=== PATIENT | female | born 1930 | race Caucasian/White ===

== ENCOUNTER 2016-04-15 00:45 | Emergency (ER) | payer MEDICARE ==
[2016-04-15 01:25] LABS: BASOPHIL % 0.3 % (0.0-0.4); Eosinophil % 4.3 % (0.00-5.0); Granulocytes % 68.4 % (36.0-66.0); Lymphocytes % 18.9 % (24.0-44.0); Mean Cell Volume 89.2 fl (78-100); Mean Corpuscular Hemoglobin 27.4 pg (26-32); Mean Platelet Volume 10.4 fl (6-9.5); Monocytes % 8.1 % (0.0-12.0); Platelet Count 155 K/mm3 (150-450); Red Cell Distribution Width 14.2 % (11.5-14.0); White Blood Count 7.4 K/mm3 (4.0-10.5)
[2016-04-15] MEDS ORDERED: SUBLIMAZE 100 MCG/2 ML IV ONE (01:26)
[2016-04-15] MEDS ORDERED: SUBLIMAZE 100 MCG/2 ML ONE (01:31)
[2016-04-15 01:45] LABS: ALBUMIN 3.2 g/dL (3.4-5.0); ANION GAP 15.9 MEQ/L (5-15); BILIRUBIN,TOTAL 0.2 mg/dL (0.2-1.0); Carbon Dioxide 24.5 mEq/L (21-32); Potassium 4.1 mEq/L (3.5-5.1); Total Protein 6.6 gm/dL (6.4-8.2)
--- NOTE | 2016-04-15 01:46 | ERPHSYRPT ---
- History of Present Illness Time Seen by Provider: 04/15/16 01:03 Source: patient, family (daughter) Patient Subjective Stated Complaint: pt statess he has been having back pain since approx 1630. states she has been taking pain pills and muscle relaxer today but isnt having any relief. Triage Nursing Assessment: pt alert and oriented. answers questions approp. skin pink warm and dry. pt moaning and tearful at times. generalized weakness noted. pt transfer to stretcher from wheelchair with assist of 1. Physician History: CC: back pain Hx: 85 y/o patient of Dr Huffman/Florin King. She has hx of DM, chornic back issues and prior DJD and kyphoplasty, CAD s/p CABG remotely, as well as PVD stenting procedures. She has had back pain intermittently for the past month or better. It was worse so she had xray. The xray showed DJD and thoracic aneurysm. She came for abdominal CT which showed no AAA. The pain was bad that day so she checked into ER and had morphine. She has not had recent imaging of the thoracic aorta. The pain is worse tonite and severe. It does not radiate. Worse with cold chill. No N/T/W. No chest or abd pain. She has norco to use QID but only took 2 today as she slept most of the day. She is not on home oxygen. She is not short of air. Back Pain Location: T-spine Severity of Pain-Max: severe Severity of Pain-Current: severe Associated Symptoms: muscle spasms (back) Allergies/Adverse Reactions: Penicillins Allergy (Verified 04/15/16 01:02) heparin Adverse Reaction (Verified 04/15/16 01:02) Home Medications: Aspirin EC 325 mg [Ecotrin 325 MG] 1 tab PO DAILY 06/24/14 [History] Clopidogrel Bisulfate 75 mg [PLAVIX 75 MG Tablet] 75 mg PO DAILY 06/24/14 [History] Insulin Regular, Human [Humulin R] 0 units SQ TID 06/24/14 [History] Olmesartan Medoxomil 20 mg [Benicar 20 MG] 1 tab PO DAILY 06/24/14 [ History] Potassium Chloride 20 Meq [Klor-Con 20 MEQ] 1 tab PO DAILY 06/24/14 [History] Hydrocodone/APAP 10/325 mg [[place] 10/325 MG Tablet] 1 tab PO Q4-6HPRN PRN 06/25/14 [History] Hx Tetanus, Diphtheria Vaccination/Date Given: No Hx Influenza Vaccination/Date Given: Yes Hx Pneumococcal Vaccination/Date Given: Yes Immunizations Up to Date: Yes - Review of Systems Constitutional: No Fever Respiratory: No Cough, No Dyspnea Abdominal/Gastrointestinal: No Abdominal Pain, No Nausea, No Vomiting Genitourinary Symptoms: No Dysuria Musculoskeletal: Back Pain (upper), No Neck Pain Skin: No Rash Neurological: No Focal Weakness, No Headache, No Parasthesia All Other Systems: Reviewed and Negative - Past Medical History Pertinent Past Medical History: Yes Neurological History: No Pertinent History ENT History: No Pertinent History Cardiac History: Coronary Artery Disease, Hypertension Respiratory History: No Pertinent History Endocrine Medical History: Diabetes Type II Musculoskeletal History: Arthritis GI Medical History: No Pertinent History History: No Pertinent History Psycho-Social History: No Pertinent History Female Reproductive Disorders: No Pertinent History - Past Surgical History Past Surgical History: Yes Neuro Surgical History: No Pertinent History Cardiac: CABG Respiratory: No Pertinent History Gastrointestinal: No Pertinent History Genitourinary: No Pertinent History Musculoskeletal: Joint Replacement Female Surgical History: Hysterectomy Other Surgical History: L knee replacement - Social History Smoking Status: Never smoker Exposure to second hand smoke: No Drug Use: none Patient Lives Alone: Yes - Female History Hx Last Menstrual Period: post - Nursing Vital Signs Temperature: 98.3 F Temperature Source: Oral Pulse Rate: 68 Respiratory Rate: 24 Blood Pressure: 144/60 Pain Intensity: 10 - Physical Exam General Appearance: alert, obese Eye Exam: PERRL/EOMI Ears, Nose, Throat Exam: normal ENT inspection Neck Exam: normal inspection, non-tender, supple Respiratory Exam: normal breath sounds, No chest tenderness Cardiovascular Exam: regular rate/rhythm, No murmur Gastrointestinal Exam: soft, No tenderness, No distention Back Exam: normal inspection, other (mild diffuse discomfort without point tenderness or specific muscle tenderness) Extremity Exam: pedal edema Neurologic Exam: alert, oriented x 3, cooperative, sensation nml, No motor deficits Skin Exam: warm, dry - Course Nursing assessment & vital signs reviewed: Yes - CT Exams chest without CT Interpretation: Tele-radiologist Report (increased aneurysmal dilatation of posterior aortic arch, new calcification in proximal descending aorta, heterogenous patchy groundglass opacities) Ordered Tests: Active Orders 24 hr Category Date Time Status IV Insertion STAT Care 04/15/16 01:11 Active Oxygen-ED Only NASAL CANNULA 2 lpm Care 04/15/16 01:27 Active CHEST WITHOUT CONTRAST [CT] Stat Exams 04/15/16 02:06 Ordered CBC W DIFF Stat Lab 04/15/16 01:19 Completed CMP Stat Lab 04/15/16 01:19 Completed Medication Summary Discontinued Medications Generic Name Dose Route Start Last Admin Trade Name Hesham PRN Reason Stop Dose Admin Fentanyl Citrate 25 mcg 04/15/16 01:26 04/15/16 01:32 Sublimaze 100 Mcg/2 Ml IV 04/15/16 01:27 25 mcg STAT ONE Administration Fentanyl Citrate Confirm 04/15/16 01:31 Sublimaze 100 Mcg/2 Ml Administered 04/15/16 01:32 Dose 100 mcg .ROUTE .Zeomatrix-MED ONE Lab/Rad Data: Laboratory Result Diagrams 04/15/16 01:19 04/15/16 01:19 Laboratory Results 04/15/16 04/15/16 Range/Units 01:19 01:19 WBC 7.4 (4.0-10.5) K/mm3 RBC 3.90 L (4.1-5.4) M/mm3 Hgb 10.7 L (12.0-16.0) gm/dl Hct 34.8 L (35-47) % MCV 89.2 (78-100) fl MCH 27.4 (26-32) pg MCHC 30.7 L (32-36) g/dl RDW 14.2 H (11.5-14.0) % Plt Count 155 (150-450) K/mm3 MPV 10.4 H (6-9.5) fl Gran % 68.4 H (36.0-66.0) % Lymphocytes % 18.9 L (24.0-44.0) % Monocytes % 8.1 (0.0-12.0) % Eosinophils % 4.3 (0.00-5.0) % Basophils % 0.3 (0.0-0.4) % Basophils # 0.02 (0-0.4) Sodium 141 (136-145) mEq/L Potassium 4.1 (3.5-5.1) mEq/L Chloride 105 (98-107) mEq/L Carbon Dioxide 24.5 (21-32) mEq/L Anion Gap 15.9 H (5-15) MEQ/L BUN 21 H (9-20) mg/dL Creatinine 1.33 H (0.55-1.30) mg/dl Estimated GFR 40 ML/MIN Glucose 290 H (70-110) MG/DL Calcium 9.4 (8.5-10.1) mg/dL Total Bilirubin 0.2 (0.2-1.0) mg/dL AST 25 (15-37) U/L ALT 18 (12-78) U/L Alkaline Phosphatase 108 (46-116) U/L Serum Total Protein 6.6 (6.4-8.2) gm/dL Albumin 3.2 L (3.4-5.0) g/dL - Progress Progress Note: 04/15/16 01:45 RA pulse ox varies from 88-95%. Explained the apparent thoracic aortic aneurysm seen on T spine imaging and the fact it has not been recently imaged and could be the cause of her back pain. Daughter is pretty certain this is muscle spams which may certainly be correct. Her renal insufficiency may preclude CTA. Will treat pain with fentanyl and reevaluate. 04/15/16 02:05 Pain is improved now. O2 stable on N/C. Called Dr Huffman who knows patient well. The recent back pain has seemed musculoskeletel and has been treated as such. She follow with Dr Florin King for vascular disease. GFR precludes contrast here. He advised non contrast CT and consult Dr Florin King. 04/15/16 04:18 The pain is better. Saturations stable. Reviewed CT scan with pt and daughter. Explained this thoracic aortic aneurysm could be worsened and could results in dissection or rupture which would be catastrophic. The back pain could be a result of this aortic aneurysm. At her age, rupture would unlikely to be salvageable. Explained possibility of transfer to to obtain [facility] for further evaluation. They understand and want to go home and have outpatient follow up. They understand risk of or ruptured aorta. Paged Dr Fragoso for [place]. Will arrange outpatient follow up. She has norco at home for pain. Counseled pt/family regarding: lab results, diagnosis, need for follow-up, rad results - Departure Time of Disposition: 04:33 Departure Disposition: Home Clinical Impression: Thoracic aortic aneurysm Back pain Qualifiers: Back pain location: thoracic back pain Chronicity: acute Back pain laterality: midline Qualified Code(s): M54.6 - Pain in thoracic spine Chronic renal insufficiency Qualifiers: Chronic kidney disease stage: stage 3 (moderate) Qualified Code(s): N18.3 - Chronic kidney disease, stage 3 (moderate) Condition: Fair Critical Care Time: No Referrals: ADALGISA HUFFMAN MD [Primary Care Provider] - JAZMYN KING [COURTESY STAFF] - Instructions: Low Back Pain Additional Instructions: Take your norco as already prescribed. Call today for appointment to follow up with Dr Florin King to have further testing on the thoracic aortic aneurysm. Return for problems or concerns.
[2016-04-15 04:19] VITALS: O2SAT 96
[2016-04-15 04:54] VITALS: BP 135/78; PULSE 54
--- NOTE | 2016-04-15 10:28 | XRAY ---
Indication: Back pain. History of thoracic aneurysm. Multiple contiguous axial images obtained through the chest without contrast as ordered. Comparison: June 23, 2011 Thoracic aorta remains markedly arteriosclerotic as well as its great branches and coronary vessels. Proximal descending aorta demonstrates fusiform aneurysmal dilatation with a maximum diameter of 4.8 cm, previously 4.2 cm. Descending aorta at the level of zehra now demonstrates irregular eccentric intraluminal calcifications. Lack of IV contrast precludes further characterization. Heart remains enlarged. No pericardial effusion. There remains anterior cardiac stimulator leads. No pathologic mediastinal lymphadenopathy. Examination of the lung parenchyma again demonstrates diffuse scattered fibrosis/scarring and a few calcified granulomas. Stable subcentimeter noncalcified nodule in the right middle lobe also presumed granulomatous. New patchy areas of groundglass airspace opacities bilaterally. No consolidation or large effusion. Bony thorax intact again with osteopenia, spinal degenerative changes, and sternotomy wires. Limited upper abdomen including adrenal glands are unremarkable. Impression: 1. Again diffuse arteriosclerotic disease. Minimally enlarging aneurysmal dilatation of the proximal descending aorta. New intimal calcifications in the mid descending aorta. Contrasted exam may yield further information if there remains further clinical concern. 2. New bilateral patchy groundglass airspace disease. 3. Stable cardiomegaly, scattered fibrosis/scarring, and evidence for old granulomatous disease. Comment: Preliminary interpretation was made by [facility]. No critical discrepancy. CTDI is 17.77
== END 2016-04-15 04:45 | disposition home or self-care (01) ==
LOC: ED 00:45
DX: M54.6 Pain in thoracic spine (principal); N18.3 Chronic kidney disease, stage 3 (moderate); I71.2 Thoracic aortic aneurysm, without rupture
CPT/HCPCS: 36000; 36415; 71250; 80053; 85025; 99283; J3010

== ENCOUNTER 2016-11-20 20:00 | Emergency (ER) | payer MEDICARE ==
[2016-11-20] MEDS ORDERED: TORAdol 30 mg Injection IM ONE (20:19)
[2016-11-20] MEDS ORDERED: Norflex 60 MG/2 ML IM ONE (20:19)
[2016-11-20] MEDS ORDERED: Norflex 60 MG/2 ML ONE (20:23)
[2016-11-20] MEDS ORDERED: TORAdol 30 mg Injection ONE (20:23)
--- NOTE | 2016-11-20 20:24 | ERPHSYRPT ---
- History of Present Illness Time Seen by Provider: 11/20/16 20:21 Source: patient Exam Limitations: no limitations Patient Subjective Stated Complaint: pt states she has chronic back pain and had increased pain after taking a shower today. Triage Nursing Assessment: pt awake and alert, answers questions approp. pt restless in bed and moaning. pt transfers from wheelchair to stretcher with minimal assist of 1. respirations nonlabored with lungs cta. tenderness noted to back. pt denies numbness or tingling in lower ext. pt able to move bilat lower ext without difficulty. pedal pulses, cap refill wnl bilat. Physician History: pt states she has chronic back pain and had increased pain after taking a shower today. pt denies numbness or tingling in lower ext. Timing/Duration: today Method of Injury: other (while taking shower) Quality: cramping Back Pain Location: lumbar spine, paraspinous muscles Severity of Pain-Max: moderate Severity of Pain-Current: moderate Modifying Factors: Improves With: nothing Associated Symptoms: denies symptoms Allergies/Adverse Reactions: Penicillins Allergy (Verified 11/20/16 20:16) heparin Adverse Reaction (Verified 11/20/16 20:16) Home Medications: Aspirin EC 325 mg [Ecotrin 325 MG] 1 tab PO DAILY 06/24/14 [History] Clopidogrel Bisulfate 75 mg [PLAVIX 75 MG Tablet] 75 mg PO DAILY 06/24/14 [History] Insulin Regular, Human [Humulin R] 0 units SQ TID 06/24/14 [History] Olmesartan Medoxomil 20 mg [Benicar 20 MG] 1 tab PO DAILY 06/24/14 [ History] Potassium Chloride 20 Meq [Klor-Con 20 MEQ] 1 tab PO DAILY 06/24/14 [History] Hydrocodone/APAP 10/325 mg [[place] 10/325 MG Tablet] 1 tab PO Q4-6HPRN PRN 06/25/14 [History] Hx Tetanus, Diphtheria Vaccination/Date Given: No Hx Influenza Vaccination/Date Given: Yes Hx Pneumococcal Vaccination/Date Given: Yes Immunizations Up to Date: Yes - Review of Systems Constitutional: No Fever, No Chills Eyes: No Symptoms Ears, Nose, & Throat: No Symptoms Respiratory: No Cough, No Dyspnea Cardiac: No Chest Pain, No Edema, No Syncope Abdominal/Gastrointestinal: No Abdominal Pain, No Nausea, No Vomiting, No Diarrhea Genitourinary Symptoms: No Dysuria Musculoskeletal: Back Pain, No Neck Pain Skin: No Rash Neurological: No Dizziness, No Focal Weakness, No Sensory Changes Psychological: No Symptoms Endocrine: No Symptoms All Other Systems: Reviewed and Negative - Past Medical History Pertinent Past Medical History: Yes Neurological History: No Pertinent History ENT History: No Pertinent History Cardiac History: Coronary Artery Disease, Hypertension Respiratory History: No Pertinent History Endocrine Medical History: Diabetes Type II Musculoskeletal History: Arthritis GI Medical History: No Pertinent History History: No Pertinent History Psycho-Social History: No Pertinent History Female Reproductive Disorders: No Pertinent History - Past Surgical History Past Surgical History: Yes Neuro Surgical History: No Pertinent History Cardiac: CABG Respiratory: No Pertinent History Gastrointestinal: No Pertinent History Genitourinary: No Pertinent History Musculoskeletal: Joint Replacement Female Surgical History: Hysterectomy Other Surgical History: L knee replacement - Social History Smoking Status: Never smoker Exposure to second hand smoke: No Drug Use: none Patient Lives Alone: Yes - Nursing Vital Signs Nursing Vital Signs: Initial Vital Signs Temperature 98.4 F 11/20/16 20:06 Pulse Rate 55 L 11/20/16 20:06 Respiratory Rate 20 11/20/16 20:06 Blood Pressure 110/55 11/20/16 20:06 O2 Sat by Pulse Oximetry 95 11/20/16 20:06 Pain Scale Pain Intensity [] 10 Pain Intensity 10 - Physical Exam General Appearance: no apparent distress, alert Eye Exam: PERRL/EOMI, eyes nml inspection Neck Exam: normal inspection, non-tender, supple, full range of motion, No meningismus, No midline tenderness Respiratory Exam: normal breath sounds, lungs clear, No respiratory distress Cardiovascular Exam: regular rate/rhythm, normal heart sounds Gastrointestinal Exam: soft, No tenderness, No mass Back Exam: decreased range of motion, muscle spasm, No CVA tenderness, No vertebral tenderness, No rash, No point tenderness Extremity Exam: normal inspection, normal range of motion, No calf tenderness, No pedal edema Neurologic Exam: alert, oriented x 3, cooperative, venetian blind cleaner II-XII nml as tested, normal mood/affect, nml station & gait, sensation nml, No motor deficits Skin Exam: normal color, warm, dry, No rash SpO2: 95 Oxygen Delivery: Room Air - Course Nursing assessment & vital signs reviewed: Yes - Radiology Exams L-Spine X-ray Interpretation: Reviewed by me Ordered Tests: Active Orders 24 hr Category Date Time Status THORACOLUMBAR SPINE Stat Exams 11/20/16 20:18 Ordered Medication Summary Discontinued Medications Generic Name Dose Route Start Last Admin Trade Name Hesham PRN Reason Stop Dose Admin Ketorolac Tromethamine 30 mg 11/20/16 20:19 11/20/16 20:27 Toradol 30 Mg Injection IM 11/20/16 20:20 30 mg STAT ONE Administration Ketorolac Tromethamine Confirm 11/20/16 20:23 Toradol 30 Mg Injection Administered 11/20/16 20:24 Dose 30 mg .ROUTE .STK-MED ONE Orphenadrine Citrate 60 mg 11/20/16 20:19 11/20/16 20:28 Norflex 60 Mg/2 Ml IM 11/20/16 20:20 60 mg STAT ONE Administration Orphenadrine Citrate Confirm 11/20/16 20:23 Norflex 60 Mg/2 Ml Administered 11/20/16 20:24 Dose 60 mg .ROUTE .STK-MED ONE - Progress Progress: improved, pain not gone completely Counseled pt/family regarding: diagnosis, need for follow-up, rad results - Departure Time of Disposition: 21:05 Departure Disposition: Home Clinical Impression: Back muscle spasm Back pain Qualifiers: Back pain location: thoracic back pain Chronicity: acute Back pain laterality: midline Qualified Code(s): M54.6 - Pain in thoracic spine Condition: Stable Critical Care Time: No Referrals: ADALGISA DIAZ MD [Primary Care Provider] - Instructions: Low Back Pain, Muscle Strain Additional Instructions: Carine Rizzo F -85 years (1930) BACK INJURY 1. May apply moist heat frequently for relief of pain. Take care not to burn the skin. Do not use heat for more than 30 minutes at a time. 2. Try to sleep on a firm bed, flat on your back. 3. If no improvement is noticed in 2-3 days, follow up with your family physician. 4. If you notice any numbness, tingling, weakness, or problems with your bowel or bladder, you should call your family physician or return to the emergency department. SPRAINS/STRAINS/CONTUSIONS 1. Rest the affected area as much as possible for the next few days. 2. Apply ice to the affected area for 20-30 minutes at a time, several times a day. 3. If you receive an elastic wrap, wear it only while awake for comfort and support. Re-wrap the elastic wrap if it feels too tight or too loose. 4. If swelling is present, elevate the affected part above the level of the heart for at least 2 to 3 days. 5. Use splints, slings, or crutches as instructed. 6. Watch for severe swelling, coldness, numbness, and discoloration of the fingers and toes. See your family physician or return to the emergency department if any of these are noted. Please follow the instructions given to you. Please take your medication as prescribed if given. If symptoms recur or get worse, come back to the emergency room if you cannot reach your primary care physician, or call your primary care physician for an appointment. Again if your symptoms get worse, come back to the emergency room. Thanks for visiting emergency room, and let us take care of you. Prescriptions: Cyclobenzaprine HCl 10 mg PO TID #30 tablet
[2016-11-20 21:29] VITALS: BP 137/80; PULSE 70; O2SAT 100
--- NOTE | 2016-11-21 08:52 | XRAY ---
Indication: Spasms. Comparison: Thoracic spine March 22, 2016. AP/lateral views centered at the thoracolumbar junction demonstrates osteopenia, mild multilevel degenerative changes, L3/L4 kyphoplasty, extensive vascular calcifications, known thoracic aneurysm, and bilateral iliac stent grafts. Query minimally depressed superior T10 endplate fracture of uncertain chronicity.
== END 2016-11-20 21:29 | disposition home or self-care (01) ==
LOC: ED 20:00
DX: M62.830 Muscle spasm of back (principal)
CPT/HCPCS: 72080; 96372; 99284; J1885; J2360

== ENCOUNTER 2017-01-30 08:02 | Emergency (ER) | payer MEDICARE ==
[2017-01-30] MEDS ORDERED: Lasix 40 MG/4 ML IV ONE (08:30)
[2017-01-30] MEDS ORDERED: DUONEB 0.5-3 MG/3 ml Neb IH ONE ×2 (08:30→08:36)
[2017-01-30] MEDS ORDERED: Sodium Chloride 0.9% 1000 ML 1,000 ML IV SCH (08:30)
[2017-01-30] MEDS ORDERED: Lasix 40 MG/4 ML ONE (08:43)
[2017-01-30] MEDS ORDERED: Sodium Chloride 0.9% 1000 ML 1,000 ML ONE (08:43)
--- NOTE | 2017-01-30 09:09 | ERPHSYRPT ---
- History of Present Illness Time Seen by Provider: 01/30/17 09:05 Source: patient, family, EMS Exam Limitations: no limitations Patient Subjective Stated Complaint: pt states she has been short of breath off and on for approx 2 weeks. reports dry cough starting yesterday. denies any pain. Triage Nursing Assessment: pt is aox3, transferred to cot per ems, pt is tachypneic, pt is able to speak in 3-4 word sentences, slight expiratory wheezes heard throughout lung [place]. pt is afebrile. skin is pale warm and dry , radial pulses are strong and equal, no edema appreciated. Physician History: pt states she has been short of breath off and on for approx 2 weeks. reports dry cough starting yesterday. Patient is a 86-year-old female with significant past medical history of hypertension, congestive heart failure, coronary artery disease status post coronary artery bypass graft 20 years ago, started having this shortness of breath for last 2 weeks which started getting worse in last 2 days with some dry cough yesterday. She denies any chest pain, nausea, vomiting, diarrhea or constipation or blood in her stool or vomiting. Timing/Duration: week(s) Activities at Onset: activity Severity of Dyspnea-Max: moderate Severity of Dyspnea-Current: moderate Possible Cause: frequent episodes Modifying Factors: Improves With: activity Associated Symptoms: cough, edema, wheezing, weakness, ankle swelling, heart racing, No chest pain/discomfort, No chills, No hemoptysis, No calf pain, No dizziness, No heaviness, No muscle spasms feet, No painful breathing, No productive cough, No sweating, No tightness, No tingling face, No tingling hands Allergies/Adverse Reactions: Penicillins Allergy (Verified 01/30/17 08:20) heparin Adverse Reaction (Verified 01/30/17 08:20) Home Medications: Alprazolam 0.25 mg [xanAX 0.25 MG] 0.25 mg PO BID PRN 01/30/17 [History] Celecoxib 200 mg PO DAILY 01/30/17 [History] Clopidogrel Bisulfate 75 mg [PLAVIX 75 MG Tablet] 75 mg PO DAILY 01/30/17 [History] Hydrocodone/APAP 10/325 mg [[place] 10/325 MG Tablet] 1 tab PO Q6H PRN PRN 01/30/17 [History] Insulin Regular, Human [Humulin R] 0 unit IJ DAILY 01/30/17 [History] Olmesartan Medoxomil 20 mg [Benicar 20 MG] 20 mg PO DAILY 01/30/17 [ History] Potassium Chloride 10 Meq Tab* [Klor Con 10 MEQ] 10 meq PO DAILY 01/30/17 [ History] Ropinirole HCl 0.5 mg [Requip 0.5 MG] 0.5 mg PO HS 01/30/17 [History] Hx Tetanus, Diphtheria Vaccination/Date Given: Yes Hx Influenza Vaccination/Date Given: No Hx Pneumococcal Vaccination/Date Given: No Immunizations Up to Date: Yes - Review of Systems Constitutional: No Fever, No Chills Eyes: No Symptoms Ears, Nose, & Throat: No Symptoms Respiratory: Cough, Dyspnea, Dyspnea on Exertion (OLIVO), No Wheezing Cardiac: Edema, No Chest Pain, No Syncope Abdominal/Gastrointestinal: No Abdominal Pain, No Nausea, No Vomiting, No Diarrhea Genitourinary Symptoms: No Dysuria Musculoskeletal: No Back Pain, No Neck Pain Skin: No Rash Neurological: No Dizziness, No Focal Weakness, No Sensory Changes Psychological: No Symptoms Endocrine: No Symptoms All Other Systems: Reviewed and Negative - Past Medical History Pertinent Past Medical History: Yes Neurological History: No Pertinent History ENT History: No Pertinent History Cardiac History: Coronary Artery Disease, Hypertension Respiratory History: No Pertinent History Endocrine Medical History: Diabetes Type II Musculoskeletal History: Arthritis GI Medical History: No Pertinent History History: No Pertinent History Psycho-Social History: No Pertinent History Female Reproductive Disorders: No Pertinent History - Past Surgical History Past Surgical History: Yes Neuro Surgical History: No Pertinent History Cardiac: CABG Respiratory: No Pertinent History Gastrointestinal: No Pertinent History Genitourinary: No Pertinent History Musculoskeletal: Joint Replacement Female Surgical History: Hysterectomy Other Surgical History: L knee replacement - Social History Smoking Status: Former smoker Exposure to second hand smoke: No Drug Use: none Patient Lives Alone: Yes - Nursing Vital Signs Nursing Vital Signs: Initial Vital Signs Temperature 98.9 F 01/30/17 08:03 Pulse Rate 90 01/30/17 08:03 Respiratory Rate 34 H 01/30/17 08:03 Blood Pressure 187/97 01/30/17 08:03 O2 Sat by Pulse Oximetry 95 01/30/17 08:03 Pain Scale Pain Intensity 0 - Physical Exam General Appearance: no apparent distress, alert Eye Exam: PERRL/EOMI Neck Exam: normal inspection, supple Respiratory Exam: respiratory distress, crackles/rales, rhonchi Cardiovascular/Chest Exam: normal heart sounds, tachycardia Abdominal/Gastrointestinal Exam: soft, No tenderness, No distention, No mass Extremity Exam: non-tender, normal range of motion, normal inspection, no calf tenderness, no pedal edema Neurologic Exam: alert, oriented x 3, cooperative, dynamic balancer II-XII nml as tested, sensation nml, No motor deficits Skin Exam: normal color, warm, No dry SpO2 Interpretation: normal SpO2: 95 Oxygen Delivery: Room Air - Course Nursing assessment & vital signs reviewed: Yes EKG Interpreted by Me: Sinus Rhythm, Non-specific ST Changes Ordered Tests: Active Orders 24 hr Category Date Time Status EKG-ER Only STAT Care 01/30/17 08:32 Active Argueta [Catheter-[place] Argueta] STAT Care 01/30/17 09:46 Active Oxygen-ED Only NASAL CANNULA 2 lpm Care 01/30/17 08:30 Active CHEST 1 VIEW (PORTABLE) Stat Exams 01/30/17 08:31 Taken CBC W DIFF Stat Lab 01/30/17 05:45 Completed CMP Stat Lab 01/30/17 05:45 Completed MAGNESIUM Stat Lab 01/30/17 05:45 Completed Manual Differential NC Stat Lab 01/30/17 05:45 Completed NT PRO BNP Stat Lab 01/30/17 05:45 Completed TROPONIN Stat Lab 01/30/17 05:45 Completed UA W/RFX UR CULTURE Stat Lab 01/30/17 08:31 Ordered Respiratory Nebulizer STAT RT 01/30/17 08:32 Completed Medication Summary Generic Name Dose Route Start Last Admin Trade Name Freq PRN Reason Stop Dose Admin Sodium Chloride 1,000 mls @ 50 mls/hr 01/30/17 08:30 01/30/17 08:52 Sodium Chloride 0.9% 1000 Ml IV 03/01/17 08:29 50 mls/hr .Q20H [place] Administration Discontinued Medications Generic Name Dose Route Start Last Admin Trade Name Freq PRN Reason Stop Dose Admin Albuterol/Ipratropium 3 ml 01/30/17 08:30 01/30/17 08:35 Duoneb 0.5-3 Mg/3 Ml Neb IH 01/30/17 08:31 3 ml STAT ONE Administration Albuterol/Ipratropium Confirm 01/30/17 08:36 Duoneb 0.5-3 Mg/3 Ml Neb Administered 01/30/17 08:37 Dose 3 ml IH .STK-MED ONE Furosemide 40 mg 01/30/17 08:30 01/30/17 08:52 Lasix 40 Mg/4 Ml IV 01/30/17 08:31 40 mg STAT ONE Administration Furosemide Confirm 01/30/17 08:43 Lasix 40 Mg/4 Ml Administered 01/30/17 08:44 Dose 40 mg .ROUTE .STK-MED ONE Lab/Rad Data: Laboratory Result Diagrams 01/30/17 05:45 01/30/17 05:45 Laboratory Results 01/30/17 01/30/17 Range/Units 05:45 05:45 WBC 5.1 (4.0-10.5) K/mm3 RBC 3.49 L (4.1-5.4) M/mm3 Hgb 8.8 L (12.0-16.0) gm/dl Hct 30.6 L (35-47) % MCV 87.7 (78-100) fl MCH 25.2 L (26-32) pg MCHC 28.8 L (32-36) g/dl RDW 16.1 H (11.5-14.0) % Plt Count 120 L (150-450) K/mm3 MPV 10.8 H (6-9.5) fl Segmented Neutrophils 77 H (36.0-66.0) % Lymphocytes (Manual) 21 L (24-44) % Monocytes (Manual) 2 (0.0-12.0) % Differential Comment ABNORMAL Platelet Estimate NORMAL (NORMAL) Poikilocytosis 1+ Anisocytosis 1+ Ovalocytes 1+ Sodium 141 (136-145) mEq/L Potassium 4.5 (3.5-5.1) mEq/L Chloride 106 (98-107) mEq/L Carbon Dioxide 25.3 (21-32) mEq/L Anion Gap 14.0 (5-15) MEQ/L BUN 25 H (9-20) mg/dL Creatinine 1.46 H (0.55-1.30) mg/dl Estimated GFR 36 ML/MIN Glucose 191 H (70-110) MG/DL Calcium 9.4 (8.5-10.1) mg/dL Magnesium 1.5 L (1.8-2.4) mg/dL Total Bilirubin 0.40 (0.2-1.0) mg/dL AST 21 (15-37) U/L ALT 20 (12-78) U/L Alkaline Phosphatase 101 (46-116) U/L Troponin I 0.119 H* (0.000-0.056) ng/ml NT-Pro-B Natriuret Pep 3594 H (0-450) pg/ml Serum Total Protein 6.5 (6.4-8.2) gm/dL Albumin 3.4 (3.4-5.0) g/dL - Progress Progress: re-examined, unchanged Air Movement: fair Progress Note: 01/30/17 10:04 Laboratory values and chest x-ray feedings discussed with the patient, patient' s daughter and her granddaughter. They were informed that she is having a mild heart attack, and for which she needs to be seen by lay out technician who is Dr. Isabel stevens. Dr hare contacted and he wanted patient to be transferred to [facility]. I talked to the ER physician at [facility] and he accepted the patient. Patient is in stable condition to be transferred. Blood Culture(s) Obtained: No Antibiotics given: No Discussed with : Other (ER Physician at [facility]) Counseled pt/family regarding: lab results, diagnosis, need for follow-up, rad results - Departure Time of Disposition: 10:03 Departure Disposition: Transfer (ER at [facility]) Clinical Impression: Non-ST elevation NE (NSTEMI) Acute CHF (congestive heart failure) Qualifiers: Congestive heart failure type: combined Qualified Code(s): I50.41 - Acute combined systolic (congestive) and diastolic (congestive) heart failure Condition: Stable Critical Care Time: Yes Critical Care Time(excluding separately billable procedures): 30-74 minutes Referrals: ADALGISA DIAZ MD [Primary Care Provider] - Instructions: Heart Failure
[2017-01-30 09:10] LABS: Mean Cell Volume 87.7 fl (78-100); Mean Corpuscular Hemoglobin 25.2 pg (26-32); Mean Platelet Volume 10.8 fl (6-9.5); Platelet Count 120 K/mm3 (150-450); Red Blood Count 3.49 M/mm3 (4.1-5.4); Red Cell Distribution Width 16.1 % (11.5-14.0); White Blood Count 5.1 K/mm3 (4.0-10.5)
[2017-01-30 09:39] LABS: ALBUMIN 3.4 g/dL (3.4-5.0); BILIRUBIN,TOTAL 0.4 mg/dL (0.2-1.0); Carbon Dioxide 25.3 mEq/L (21-32); MAGNESIUM 1.5 mg/dL (1.8-2.4); Potassium 4.5 mEq/L (3.5-5.1); Total Protein 6.5 gm/dL (6.4-8.2)
[2017-01-30 09:43] LABS: Total Cells Counted 100
[2017-01-30 09:44] LABS: ANISOCYTOSIS 1+; Ovalocytes 1+; Platelet Estimate NORMAL (NORMAL); Poikilocytosis 1+
[2017-01-30 09:45] LABS: TROPONIN 0.119 ng/ml (0.000-0.056)
[2017-01-30 10:24] LABS: ADD URINE CULTURE? NO (NO); Bilirubin NEGATIVE (NEGATIVE); Blood NEGATIVE Ery/ul (0-5); COMPLETE URINE MICROSCOPIC? NO; Collection Type CATH; Glucose NEGATIVE (NEGATIVE); Leukocyte Esterase NEGATIVE (NEGATIVE)
[2017-01-30 10:43] VITALS: BP 147/62; PULSE 68; O2SAT 96
--- NOTE | 2017-01-30 19:52 | XRAY ---
Indication: Short of breath. Comparison: September 06, 2014. Portable chest now demonstrates cardiomegaly, vascular congestion, and small bibasilar effusions favoring cardiac decompensation. Superimposed pneumonia not completely excluded. Stable known descending aortic aneurysm.
== END 2017-01-30 11:11 | disposition short-term general hospital (02) ==
LOC: ED 08:02
DX: I21.4 Non-ST elevation (NSTEMI) myocardial infarction (principal); I50.41 Acute combined systolic (congestive) and diastolic (congestive) heart failure; I10 Essential (primary) hypertension; R06.02 Shortness of breath; I25.10 Atherosclerotic heart disease of native coronary artery without angina pectoris; E11.9 Type 2 diabetes mellitus without complications; Z79.899 Other long term (current) drug therapy; Z79.891 Long term (current) use of opiate analgesic; Z79.4 Long term (current) use of insulin
CPT/HCPCS: 36000; 36415; 51702; 71010; 80053; 81002; 83735; 83880; 84484; 85025; 93005; 94640; 96360; 96361; 96374; 99285; J1940; A9270-GY

== ENCOUNTER 2017-07-26 15:10 | Inpatient (IN) | payer MEDICARE ==
--- NOTE | 2017-07-26 15:43 | ERPHSYRPT ---
- History of Present Illness Time Seen by Provider: 07/26/17 15:35 Source: patient Exam Limitations: no limitations Patient Subjective Stated Complaint: SOB x"off and on for a long time." Triage Nursing Assessment: PT presents to the ED with complaints of SOB and increased work of breathing. Pt states "I've been short of breathe on and off for a long time." Pt denies pain at this time. Pt has increased work of breathing on arrival, O2 saturation 95% on 4L NC. Pt states she stopped taking her diuretic approximately 3 weeks ago. Physician History: The patient is an 86-year-old female brought in by ambulance from home where she complains that she has shortness of breath. The patient is a very difficult historian. She states she has been short of breath for a long time but this has been going on and off. She quit taking her water pill a couple of weeks ago because it makes her go to the bathroom and not feel well. She denies chest pain. She does not use supplemental oxygen at home. Her past medical history is significant for CHF, hypertension, diabetes, coronary artery disease, CABG. [place]. Timing/Duration: day(s), gradual onset Activities at Onset: none Severity of Dyspnea-Max: moderate Severity of Dyspnea-Current: moderate Possible Cause: occasional episodes Modifying Factors: Improves With: activity Associated Symptoms: No chest pain/discomfort Allergies/Adverse Reactions: Penicillins Allergy (Verified 07/26/17 15:21) heparin Adverse Reaction (Verified 07/26/17 15:21) Home Medications: Alprazolam 0.25 mg [xanAX 0.25 MG] 0.5 mg PO TID 01/30/17 [History] Celecoxib 200 mg PO DAILY 01/30/17 [History] Clopidogrel Bisulfate 75 mg [PLAVIX 75 MG Tablet] 75 mg PO DAILY 01/30/17 [History] Hydrocodone/APAP 10/325 mg [[place] 10/325 MG Tablet] 1 tab PO Q6H PRN PRN 01/30/17 [History] Insulin Regular, Human [Humulin R] 0 unit IJ DAILY 01/30/17 [History] Olmesartan Medoxomil 20 mg [Benicar 20 MG] 20 mg PO DAILY 01/30/17 [ History] Potassium Chloride 10 Meq Tab* [Klor Con 10 MEQ] 10 meq PO DAILY 01/30/17 [ History] Carvedilol 3.125 mg [Coreg 3.125 MG] 3.125 mg PO BID 07/26/17 [History] Hx Tetanus, Diphtheria Vaccination/Date Given: Yes Hx Influenza Vaccination/Date Given: Yes Hx Pneumococcal Vaccination/Date Given: Yes Immunizations Up to Date: Yes - Review of Systems Constitutional: No Fever, No Chills Eyes: No Symptoms Ears, Nose, & Throat: No Symptoms Respiratory: Dyspnea, Dyspnea on Exertion (OLIVO) Cardiac: No Chest Pain, No Edema, No Syncope Abdominal/Gastrointestinal: No Abdominal Pain, No Nausea, No Vomiting, No Diarrhea Genitourinary Symptoms: No Dysuria Musculoskeletal: No Back Pain, No Neck Pain Skin: No Rash Neurological: No Dizziness, No Focal Weakness, No Sensory Changes Psychological: No Symptoms Endocrine: No Symptoms Hematologic/Lymphatic: No Symptoms Immunological/Allergic: No Symptoms All Other Systems: Reviewed and Negative - Past Medical History Pertinent Past Medical History: Yes Neurological History: No Pertinent History ENT History: No Pertinent History Cardiac History: Coronary Artery Disease, Hypertension Respiratory History: No Pertinent History Endocrine Medical History: Diabetes Type II Musculoskeletal History: Arthritis GI Medical History: No Pertinent History History: No Pertinent History Psycho-Social History: No Pertinent History Female Reproductive Disorders: No Pertinent History - Past Surgical History Past Surgical History: Yes Neuro Surgical History: No Pertinent History Cardiac: CABG Respiratory: No Pertinent History Gastrointestinal: No Pertinent History Genitourinary: No Pertinent History Musculoskeletal: Joint Replacement Female Surgical History: Hysterectomy Other Surgical History: L knee replacement - Social History Smoking Status: Former smoker Exposure to second hand smoke: Yes Drug Use: none Patient Lives Alone: No - Female History Hx Now: No - Nursing Vital Signs Nursing Vital Signs: Initial Vital Signs Temperature 97.3 F 07/26/17 15:18 Pulse Rate 62 07/26/17 15:18 Respiratory Rate 26 H 07/26/17 15:18 Blood Pressure 143/53 07/26/17 15:18 O2 Sat by Pulse Oximetry 98 07/26/17 15:18 Pain Scale Pain Intensity 0 - Physical Exam General Appearance: mild distress Eye Exam: PERRL/EOMI Ears, Nose, Throat Exam: normal ENT inspection Neck Exam: normal inspection, supple Respiratory Exam: crackles/rales Cardiovascular/Chest Exam: normal heart sounds, regular rate/rhythm Abdominal/Gastrointestinal Exam: soft, other (obese), No tenderness, No distention, No mass Rectal Exam: not done Extremity Exam: pedal edema (1 +) Neurologic Exam: alert, oriented x 3, cooperative, 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 per Dr Hunt) - CT Exams Chest CT Interpretation: Tele-radiologist Report, Other (Neg PE; new pulm edema; small B pleural effusions; CHF; superimposed pneumonia cannot be excluded. per Dr Hunt) Ordered Tests: Active Orders 24 hr Category Date Time Status After [employer] Teacher STAT Care 07/26/17 15:51 Active Catheter-[place] Argueta STAT Care 07/26/17 15:50 Active EKG-ER Only STAT Care 07/26/17 15:50 Active IV Insertion STAT Care 07/26/17 15:50 Active IV Insertion-2nd Peripheral STAT Care 07/26/17 17:19 Active Oxygen-ED Only NASAL CANNULA 2 lpm Care 07/26/17 15:50 Active Pulse Oximetry (ED) STAT Care 07/26/17 15:50 Active CHEST 1 VIEW (PORTABLE) Stat Exams 07/26/17 15:51 Completed CHEST WITH CONTRAST [CT] Stat Exams 07/26/17 17:13 Taken CBC W DIFF Stat Lab 07/26/17 16:00 Completed CMP Stat Lab 07/26/17 16:00 Completed D-DIMER QUANTITATION Stat Lab 07/26/17 16:00 Completed MAGNESIUM Stat Lab 07/26/17 16:00 Completed NT PRO BNP Stat Lab 07/26/17 16:00 Completed TROPONIN Q3H Lab 07/26/17 16:00 Completed TROPONIN Q3H Lab 07/26/17 19:00 Ordered TROPONIN Q3H Lab 07/26/17 22:00 Ordered TROPONIN Q3H Lab 07/27/17 01:00 Ordered TROPONIN Q3H Lab 07/27/17 04:00 Ordered Medication Summary Discontinued Medications Generic Name Dose Route Start Last Admin Trade Name Freq PRN Reason Stop Dose Admin Furosemide 40 mg 07/26/17 15:50 07/26/17 15:59 Lasix 40 Mg/4 Ml IV 07/26/17 15:51 40 mg STAT ONE Administration Furosemide Confirm 07/26/17 15:58 Lasix 40 Mg/4 Ml Administered 07/26/17 15:59 Dose 40 mg .ROUTE .STK-MED ONE Ondansetron HCl 4 mg 07/26/17 18:54 07/26/17 18:58 Zofran 4 Mg/2 Ml Vial IV 07/26/17 18:55 4 mg STAT ONE Administration Ondansetron HCl Confirm 07/26/17 18:57 Zofran 4 Mg/2 Ml Vial Administered 07/26/17 18:58 Dose 4 mg .ROUTE .STK-MED ONE Lab/Rad Data: Laboratory Result Diagrams 07/26/17 16:00 07/26/17 16:00 Laboratory Results 07/26/17 07/26/17 07/26/17 Range/Units 16:00 16:00 16:00 WBC (4.0-10.5) K/mm3 RBC (4.1-5.4) M/mm3 Hgb (12.0-16.0) gm/dl Hct (35-47) % MCV (78-100) fl MCH (26-32) pg MCHC (32-36) g/dl RDW (11.5-14.0) % Plt Count (150-450) K/mm3 MPV (6-9.5) fl Gran % (36.0-66.0) % Eos # (Auto) (0-0.5) Absolute Lymphs (auto) (1.0-4.6) Absolute Monos (auto) (0.0-1.3) Lymphocytes % (24.0-44.0) % Monocytes % (0.0-12.0) % Eosinophils % (0.00-5.0) % Basophils % (0.0-0.4) % Absolute Granulocytes (1.4-6.9) Basophils # (0-0.4) D-Dimer 1608.85 H* (215-500) ng/mL Sodium (137-145) mmol/L Potassium (3.5-5.1) mmol/L Chloride (98-107) mmol/L Carbon Dioxide (22-30) mmol/L Anion Gap (5-15) MEQ/L BUN (7-17) mg/dL Creatinine (0.52-1.04) mg/dL Estimated GFR ML/MIN Glucose (74-106) mg/dL Calcium (8.4-10.2) mg/dL Magnesium (1.6-2.3) mg/dL Total Bilirubin (0.2-1.3) mg/dL AST (14-36) U/L ALT (0-35) U/L Alkaline Phosphatase (38-126) U/L Troponin I 0.014 (0.000-0.034) ng/mL NT-Pro-B Natriuret Pep (0-1800) pg/mL Serum Total Protein (6.3-8.2) g/dL Albumin (3.5-5.0) g/dL Influenza Type A Ag NEGATIVE (NEGATIVE) Influenza Type B Ag NEGATIVE (NEGATIVE) RSV (PCR) NEGATIVE (Negative) Slides for Path Review 07/26/17 07/26/17 Range/Units 16:00 16:00 WBC 5.1 (4.0-10.5) K/mm3 RBC 3.52 L (4.1-5.4) M/mm3 Hgb 8.3 L (12.0-16.0) gm/dl Hct 29.3 L (35-47) % MCV 83.2 (78-100) fl MCH 23.5 L (26-32) pg MCHC 28.3 L (32-36) g/dl RDW 14.6 H (11.5-14.0) % Plt Count 174 (150-450) K/mm3 MPV 10.1 H (6-9.5) fl Gran % 66.5 H (36.0-66.0) % Eos # (Auto) 0.25 (0-0.5) Absolute Lymphs (auto) 0.94 L (1.0-4.6) Absolute Monos (auto) 0.51 (0.0-1.3) Lymphocytes % 18.3 L (24.0-44.0) % Monocytes % 9.9 (0.0-12.0) % Eosinophils % 4.9 (0.00-5.0) % Basophils % 0.4 (0.0-0.4) % Absolute Granulocytes 3.41 (1.4-6.9) Basophils # 0.02 (0-0.4) D-Dimer (215-500) ng/mL Sodium 139 (137-145) mmol/L Potassium 5.2 H (3.5-5.1) mmol/L Chloride 103 (98-107) mmol/L Carbon Dioxide 30 (22-30) mmol/L Anion Gap 11.7 (5-15) MEQ/L BUN 26 H (7-17) mg/dL Creatinine 1.08 H (0.52-1.04) mg/dL Estimated GFR 50.9 ML/MIN Glucose 222 H (74-106) mg/dL Calcium 9.6 (8.4-10.2) mg/dL Magnesium 1.6 (1.6-2.3) mg/dL Total Bilirubin 0.10 L (0.2-1.3) mg/dL AST 22 (14-36) U/L ALT 16 (0-35) U/L Alkaline Phosphatase 127 H (38-126) U/L Troponin I (0.000-0.034) ng/mL NT-Pro-B Natriuret Pep 2140 H (0-1800) pg/mL Serum Total Protein 6.3 (6.3-8.2) g/dL Albumin 3.5 (3.5-5.0) g/dL Influenza Type A Ag (NEGATIVE) Influenza Type B Ag (NEGATIVE) RSV (PCR) (Negative) Slides for Path Review YES - Progress Progress: improved Air Movement: good Blood Culture(s) Obtained: Yes Discussed with : Alex Will see patient in: hospital (observation) Counseled pt/family regarding: lab results, diagnosis, rad results - Departure Time of Disposition: 19:35 Departure Disposition: Observation (per Dr Johnson) Clinical Impression: CHF (congestive heart failure) Condition: Stable Critical Care Time: No Referrals: ADALGISA DIAZ MD [Primary Care Provider] - Instructions: Heart Failure
[2017-07-26] MEDS ORDERED: Lasix 40 MG/4 ML IV ONE (15:50)
[2017-07-26] MEDS ORDERED: Lasix 40 MG/4 ML ONE (15:58)
[2017-07-26 16:20] LABS: BASOPHIL % 0.4 % (0.0-0.4); Basophil (Absolute #) 0.02 (0-0.4); Eosinophil % 4.9 % (0.00-5.0); Eosinophil (Absolute #) 0.25 (0-0.5); Granulocyte Absolute (ANC) 3.41 (1.4-6.9); Granulocytes % 66.5 % (36.0-66.0); Hematocrit 29.3 % (35-47); Hemoglobin 8.3 gm/dl (12.0-16.0); Lymphocyte (Absolute #) 0.94 (1.0-4.6); Lymphocytes % 18.3 % (24.0-44.0); Mean Cell Volume 83.2 fl (78-100); Mean Corpuscular Hgb Concent. 28.3 g/dl (32-36); Mean Platelet Volume 10.1 fl (6-9.5); Monocyte (Absolute #) 0.51 (0.0-1.3); Monocytes % 9.9 % (0.0-12.0); Platelet Count 174 K/mm3 (150-450); Red Blood Count 3.52 M/mm3 (4.1-5.4); Red Cell Distribution Width 14.6 % (11.5-14.0); White Blood Count 5.1 K/mm3 (4.0-10.5)
[2017-07-26 16:25] LABS: Mean Corpuscular Hemoglobin 23.5 pg (26-32)
--- NOTE | 2017-07-26 16:35 | XRAY ---
Indication: Short of breath. Comparison: January 30, 2017. Portable chest again demonstrates cardiomegaly, vascular congestion, and small bibasilar effusions favoring cardiac decomposition. Superimposed pneumonia not completely excluded. Grossly stable CT proven proximal descending aortic aneurysm. Bony thorax intact again with osteopenia.
[2017-07-26 16:42] LABS: Slide Review 1 YES
[2017-07-26 16:44] LABS: ALBUMIN 3.5 g/dL (3.5-5.0); ANION GAP 11.7 MEQ/L (5-15); BILIRUBIN,TOTAL 0.1 mg/dL (0.2-1.3); Calcium 9.6 mg/dL (8.4-10.2); Creatinine 1 1.08 mg/dL (0.52-1.04); Potassium 5.2 mmol/L (3.5-5.1); Total Protein 6.3 g/dL (6.3-8.2)
[2017-07-26 16:56] LABS: INFLUENZA A NEGATIVE (NEGATIVE); INFLUENZA B NEGATIVE (NEGATIVE); RESPIRATORY SYNCTIAL VIRUS NEGATIVE (Negative)
[2017-07-26] MEDS ORDERED: Zofran 4 MG/2 ML VIAL IV ONE (18:54)
[2017-07-26] MEDS ORDERED: Zofran 4 MG/2 ML VIAL ONE (18:57)
[2017-07-26] MEDS ORDERED: ROCEPHIN 1 Gm-D5w 50 ml Bag** 1 G/50 ML IVPB IV ONE (21:51)
[2017-07-27 06:16] LABS: ANION GAP 9.9 MEQ/L (5-15); Calcium 9.5 mg/dL (8.4-10.2); Creatinine 1 1.21 mg/dL (0.52-1.04)
[2017-07-27 06:21] LABS: Hematocrit 28.1 % (35-47); Hemoglobin 7.8 gm/dl (12.0-16.0); Mean Cell Volume 84.6 fl (78-100); Mean Corpuscular Hgb Concent. 27.8 g/dl (32-36); Mean Platelet Volume 10.3 fl (6-9.5); Platelet Count 180 K/mm3 (150-450); Red Blood Count 3.32 M/mm3 (4.1-5.4); Red Cell Distribution Width 14.5 % (11.5-14.0); White Blood Count 6.5 K/mm3 (4.0-10.5)
[2017-07-27 06:28] LABS: Mean Corpuscular Hemoglobin 23.4 pg (26-32)
[2017-07-27 07:38] LABS: Slide Review YES
--- NOTE | 2017-07-27 08:40 | XRAY ---
Indication: Short of breath. Elevated d-dimer. History thoracic aneurysm. Multiple contiguous axial images obtained through the chest using 100 cc Isovue 370 contrast and PE protocol. Comparison: CT chest without contrast April 15, 2016. There is satisfactory opacification of the pulmonary arteries. No pulmonary embolus. Heart remains enlarged. Aorta remains markedly arteriosclerotic. Stable proximal descending aorta fusiform aneurysm again 4.9 cm in maximum diameter without dissection. Heart remains enlarged. No pathologic mediastinal/hilar lymphadenopathy. Examination of the lung parenchyma again demonstrates scattered fibrosis/scarring and calcified granulomas. There is now small bilateral pleural effusions and interstitial edema favoring cardiac decompensation. Again bilateral patchy groundglass airspace opacities possibly superimposed pneumonia. Bony thorax intact again with mild osteopenia, degenerative spondylosis, and sternotomy wires. Limited upper abdomen again demonstrate cholecystectomy, mildly cirrhotic liver, and bilateral adrenal hypertrophy. Impression: 1. Negative pulmonary embolus. 2. Again cardiomegaly with new interstitial edema and small bilateral effusions favoring cardiac decompensation. There remains bilateral patchy airspace opacities concerning for superimposed pneumonia. 3. Stable cirrhotic liver and bilateral adrenal hypertrophy. CT DI 23.68
[2017-07-27] MEDS ORDERED: Sodium Chloride 0.9% 10 ML FLUSH Syringe IV PRN (09:15)
--- NOTE | 2017-07-27 09:40 | XRAY ---
Indication: CHF. Comparison: One day earlier. Portable chest less inflated today again demonstrating cardiomegaly, pulmonary edema, small bibasilar effusions, and known thoracic aneurysm. No new findings.
[2017-07-27] MEDS ORDERED: ROCEPHIN 1 Gm-D5w 50 ml Bag** 1 G/50 ML IVPB IV SCH (10:00)
[2017-07-27] MEDS: Lasix 40 MG/4 ML IV SCH ×2 (10:13→18:21)
[2017-07-27] MEDS ORDERED: Norco 10/325 MG Tablet PO PRN (14:00)
[2017-07-27] MEDS: Sodium Chloride 0.9% 10 ML FLUSH Syringe IV SCH ×2 (14:37→22:00)
--- NOTE | 2017-07-27 16:29 | PCM.HP ---
History of Present Illness - Chief Complaint Chief Complaint: sob History of Present Illness: is a 86 year old female who arrived to the ER complaining of shortness of breath, she had stopped taking her lasix on her own for an unknown reason. During exam she moans of pain in her back, no known injury. has chronic back pain and has been severe at times but not as of late.. - Review of Systems Constitutional: No Fever, No Chills Respiratory: Short Of Breath, No Cough Cardiac: No Chest Pain, No Edema, No Syncope Abdominal/Gastrointestinal: No Abdominal Pain, No Nausea, No Vomiting, No Diarrhea Genitourinary Symptoms: No Dysuria Musculoskeletal: Back Pain All Other Systems: Reviewed and Negative Medications & Allergies Home Medications: Home Medication List Alprazolam 0.25 mg [xanAX 0.25 MG] 0.5 mg PO TID 01/30/17 [History Confirmed 07/26/17] Celecoxib 200 mg PO DAILY 01/30/17 [History Confirmed 07/26/17] Clopidogrel Bisulfate 75 mg [PLAVIX 75 MG Tablet] 75 mg PO DAILY 01/30/17 [History Confirmed 07/26/17] Hydrocodone/APAP 10/325 mg [[place] 10/325 MG Tablet] 1 tab PO Q6H PRN PRN 01/30/17 [History Confirmed 07/26/17] Insulin Regular, Human [Humulin R] 0 unit IJ DAILY 01/30/17 [History Confirmed 07/26/17] Olmesartan Medoxomil 20 mg [Benicar 20 MG] 20 mg PO DAILY 01/30/17 [ History Confirmed 07/26/17] Potassium Chloride 10 Meq Tab* [Klor Con 10 MEQ] 10 meq PO DAILY 01/30/17 [ History Confirmed 07/26/17] Carvedilol 3.125 mg [Coreg 3.125 MG] 3.125 mg PO BID 07/26/17 [History Confirmed 07/26/17] Allergies/Adverse Reactions: Allergies Allergy/AdvReac Type Severity Reaction Status Date / Time Penicillins Allergy Verified 07/26/17 15:21 heparin AdvReac Verified 07/26/17 15:21 - Past Medical History Past Medical History: Yes Neurological History: No Pertinent History ENT History: No Pertinent History Cardiac History: Coronary Artery Disease, Hypertension Respiratory History: CHF Endocrine Medical History: Diabetes Type II Musculoskelatal History: Arthritis GI Medical History: No Pertinent History History: No Pertinent History Pyscho-Social History: No Pertinent History Reproductive Disorders: No Pertinent History - Female History Are you now?: No - Past Surgical History Past Surgical History: Yes Neuro Surgical History: No Pertinent History Cardiac History: CABG Respiratory Surgery: No Pertinent History GI Surgical History: No Pertinent History Genitourinary Surgical Hx: No Pertinent History Musculskeletal Surgical Hx: Joint Replacement Female Surgical History: Hysterectomy Other Surgical History: L knee replacement - Social History Smoking Status: Never smoker Exposure to second hand smoke: No Alcohol: None Drug Use: none - Physical Exam Vital Signs: Vital Signs - 24 hr Temp Pulse Resp BP Pulse Ox 07/27/17 16:00 99.0 F 65 20 118/58 93 L 07/27/17 15:59 92 L 07/27/17 15:55 87 L 07/27/17 15:33 94 L 07/27/17 11:20 94 L 07/27/17 11:09 75 L 07/27/17 11:00 98.7 F 74 20 115/54 93 L 07/27/17 07:19 99.3 F 71 20 121/54 90 L 07/27/17 07:03 67 20 92 L 07/27/17 04:00 97.9 F 75 19 140/60 96 07/27/17 00:00 97.9 F 68 22 110/53 93 L 07/26/17 23:35 97 07/26/17 20:40 98.1 F 68 18 144/59 96 07/26/17 19:40 95 07/26/17 19:00 59 L 17 161/57 100 07/26/17 17:01 55 L 16 119/47 99 07/26/17 16:28 50 L 16 122/55 99 Oxygen-Last 24 hours O2 Percentage 2 Liters = 28% O2 Percentage 2 Liters = 28% O2 Percentage 2 Liters = 28% O2 Percentage 2 Liters = 28% O2 Percentage 2 Liters = 28% O2 Percentage 2 Liters = 28% O2 Percentage 2 Liters = 28% O2 Percentage 2 Liters = 28% O2 Percentage 2 Liters = 28% O2 Percentage 2 Liters = 28% General Appearance: no apparent distress, alert Eye Exam: PERRL/EOMI, eyes nml inspection Respiratory Exam: crackles/rales Cardiovascular Exam: regular rate/rhythm, normal heart sounds, normal peripheral pulses Gastrointestinal/Abdomen Exam: soft, normal bowel sounds, No tenderness, No mass Skin Exam: normal color, warm, dry, No rash Results - Labs Lab/Micro Results: Accuchecks Date 07/27/17 Date 07/27/17 Time 11:30 Time 07:30 Accucheck Value: 248 Accucheck Value: 179 Lab Results-Last 24 Hours 07/26/17 07/27/17 07/27/17 Range/Units 22:20 01:30 05:27 WBC (4.0-10.5) K/mm3 RBC (4.1-5.4) M/mm3 Hgb (12.0-16.0) gm/dl Hct (35-47) % MCV (78-100) fl MCH (26-32) pg MCHC (32-36) g/dl RDW (11.5-14.0) % Plt Count (150-450) K/mm3 MPV (6-9.5) fl Sodium (137-145) mmol/L Potassium (3.5-5.1) mmol/L Chloride (98-107) mmol/L Carbon Dioxide (22-30) mmol/L Anion Gap (5-15) MEQ/L BUN (7-17) mg/dL Creatinine (0.52-1.04) mg/dL Estimated GFR ML/MIN Glucose (74-106) mg/dL Calcium (8.4-10.2) mg/dL Troponin I 0.020 0.021 0.019 (0.000-0.034) ng/mL NT-Pro-B Natriuret Pep (0-1800) pg/mL Slides for Path Review 07/27/17 07/27/17 Range/Units 05:27 05:27 WBC 6.5 (4.0-10.5) K/mm3 RBC 3.32 L (4.1-5.4) M/mm3 Hgb 7.8 L (12.0-16.0) gm/dl Hct 28.1 L (35-47) % MCV 84.6 (78-100) fl MCH 23.4 L (26-32) pg MCHC 27.8 L (32-36) g/dl RDW 14.5 H (11.5-14.0) % Plt Count 180 (150-450) K/mm3 MPV 10.3 H (6-9.5) fl Sodium 138 (137-145) mmol/L Potassium 5.0 (3.5-5.1) mmol/L Chloride 100 (98-107) mmol/L Carbon Dioxide 34 H (22-30) mmol/L Anion Gap 9.9 (5-15) MEQ/L BUN 27 H (7-17) mg/dL Creatinine 1.21 H (0.52-1.04) mg/dL Estimated GFR 44.6 ML/MIN Glucose 187 H (74-106) mg/dL Calcium 9.5 (8.4-10.2) mg/dL Troponin I (0.000-0.034) ng/mL NT-Pro-B Natriuret Pep 2150 H (0-1800) pg/mL Slides for Path Review YES Accuchecks Date 07/27/17 Date 07/27/17 Time 11:30 Time 07:30 Accucheck Value: 248 Accucheck Value: 179 - Radiology Impressions Radiology Exams & Impressions: Radiology Procedures Category Date Time Status CHEST 1 VIEW (PORTABLE) Routine Exams 07/27/17 06:00 Completed Assessment/Plan (1) CHF (congestive heart failure) Current Visit: Yes Status: Acute Assessment & Plan: continue diuresis, stressed compliance with meds. Code(s): I50.9 - HEART FAILURE, UNSPECIFIED (2) Thoracic back pain Current Visit: Yes Status: Acute Assessment & Plan: had chest ct that ruled out PE, aneurysm stable with no dissection on CT Code(s): M54.6 - PAIN IN THORACIC SPINE (3) Thoracic aortic aneurysm Current Visit: No Status: Chronic Code(s): I71.2 - THORACIC AORTIC ANEURYSM , WITHOUT RUPTURE
[2017-07-27] MEDS: Klor Con 10 MEQ PO SCH (18:21)
[2017-07-27] MEDS: OXYCODONE-ACETAMINOPHEN 10-325 PO SCH ×2 (18:21→23:42)
[2017-07-27] MEDS: Lidoderm Patch 5% TOP SCH (18:21)
[2017-07-27] MEDS: PLAVIX 75 MG Tablet PO SCH (18:21)
[2017-07-27] MEDS: Benicar 20 MG PO SCH (18:24)
[2017-07-27] MEDS: celeBREX 100 MG PO SCH (18:26)
[2017-07-27] MEDS: ROCEPHIN 1 Gm-D5w 50 ml Bag** 1 G/50 ML IVPB IV SCH (21:11)
[2017-07-27] MEDS: xanAX 0.5 MG PO SCH (21:11)
[2017-07-27] MEDS: Coreg 3.125 MG PO SCH (21:11)
[2017-07-28] MEDS: OXYCODONE-ACETAMINOPHEN 10-325 PO SCH ×3 (05:26→17:55)
[2017-07-28 06:01] LABS: Granulocyte Absolute (ANC) 2.77 (1.4-6.9); Hematocrit 27.9 % (35-47); Hemoglobin 7.7 gm/dl (12.0-16.0); Mean Corpuscular Hgb Concent. 27.6 g/dl (32-36); Mean Platelet Volume 10.5 fl (6-9.5); Platelet Count 165 K/mm3 (150-450); Red Blood Count 3.32 M/mm3 (4.1-5.4); Red Cell Distribution Width 14.6 % (11.5-14.0); White Blood Count 5.3 K/mm3 (4.0-10.5)
[2017-07-28 06:04] LABS: Mean Corpuscular Hemoglobin 23.1 pg (26-32)
--- NOTE | 2017-07-28 08:05 | PCM.NOTE ---
Date and Time: 07/28/17802 Subjective Assessment: patient feeling some better this morning, pain under better control and back pain is under better control Objective Exam General Appearance: no apparent distress, alert Skin Exam: normal color, warm, dry Respiratory Exam: normal breath sounds, crackles/rales, No respiratory distress Cardiovascular Exam: regular rate/rhythm, normal heart sounds Gastrointestinal/Abdomen Exam: soft, No tenderness, No mass Extremity Exam: normal inspection, normal range of motion OBJECTIVE DATA Vital Signs: Vital Signs - 24 hr Temp Pulse Resp BP Pulse Ox 07/28/17 06:54 94 L 07/28/17 04:05 98.0 F 52 L 19 111/51 96 07/28/17 00:05 98.7 F 66 18 123/56 94 L 07/27/17 21:59 94 L 07/27/17 20:30 63 20 97 07/27/17 20:04 98.5 F 63 20 128/53 99 07/27/17 16:00 99.0 F 65 20 118/58 93 L 07/27/17 15:59 92 L 07/27/17 15:55 87 L 07/27/17 15:33 94 L 07/27/17 11:20 94 L 07/27/17 11:09 75 L 07/27/17 11:00 98.7 F 74 20 115/54 93 L Oxygen-Last 24 hours O2 Percentage 2 Liters = 28% O2 Percentage 2 Liters = 28% O2 Percentage 2 Liters = 28% O2 Percentage 2 Liters = 28% O2 Percentage 2 Liters = 28% Pain Assessment - Last Documented Pain Intensity 0 Pain Scale Used 0-10 Pain Scale Intake and Output: Intake & Output 07/25/17 07/26/17 07/27/17 07/28/17 11:59 11:59 11:59 11:59 Intake Total 740 830 Output Total 900 1825 Balance -160 -995 Weight 83.9 kg Lab Results: Accuchecks Date 07/27/17 Date 07/27/17 Date 07/27/17 Time 22:00 Time 16:30 Time 11:30 Accucheck Value: 207 Accucheck Value: 241 Accucheck Value: 248 Lab Results-Last 24 Hours 07/28/17 Range/Units 05:22 WBC 5.3 (4.0-10.5) K/mm3 RBC 3.32 L (4.1-5.4) M/mm3 Hgb 7.7 L (12.0-16.0) gm/dl Hct 27.9 L (35-47) % MCV 84.0 (78-100) fl MCH 23.1 L (26-32) pg MCHC 27.6 L (32-36) g/dl RDW 14.6 H (11.5-14.0) % Plt Count 165 (150-450) K/mm3 MPV 10.5 H (6-9.5) fl Absolute Granulocytes 2.77 (1.4-6.9) Radiology Exams: Radiology Procedures Category Date Time Status CHEST 1 VIEW (PORTABLE) Routine Exams 07/27/17 06:00 Completed THORACIC SPINE (AP,LAT,SWIMM) Routine Exams 07/27/17 18:19 Taken Assessment/Plan (1) CHF (congestive heart failure) Current Visit: Yes Status: Acute Assessment & Plan: continue IV lasix at this time, seems improved clinically. likely will be ready for discharge tomorrow Code(s): I50.9 - HEART FAILURE, UNSPECIFIED (2) Thoracic back pain Current Visit: Yes Status: Acute Assessment & Plan: improved on percocet and lidoderm patch Code(s): M54.6 - PAIN IN THORACIC SPINE (3) Thoracic aortic aneurysm Current Visit: No Status: Chronic Code(s): I71.2 - THORACIC AORTIC ANEURYSM , WITHOUT RUPTURE
[2017-07-28 08:16] LABS: ANISOCYTOSIS 1+; Basophil 1 % (0.0-1.0); Eosinophil 6 % (0.00-3.0); Hypochromia 1+; Lymphocytes 17 % (24-44); Monocyte 8 % (0.0-12.0); Neutrophils 68 % (36.0-66.0); Total Cells Counted 100
[2017-07-28 08:17] LABS: Platelet Estimate NORMAL (NORMAL); Polychromasia RARE
--- NOTE | 2017-07-28 08:35 | XRAY ---
Indication: Right mid back pain. Comparison: CT chest one day earlier. Frontal/lateral thoracic spine again demonstrates osteopenia, mild multilevel degenerative spondylosis, L3 kyphoplasty, calcified thoracoabdominal aorta with known thoracic aneurysm, and sternotomy wires. No other bony, articular, or soft tissue abnormalities.
[2017-07-28] MEDS: Coreg 3.125 MG PO SCH ×2 (09:43→21:51)
[2017-07-28] MEDS: celeBREX 100 MG PO SCH (09:43)
[2017-07-28] MEDS: Benicar 20 MG PO SCH (09:43)
[2017-07-28] MEDS: PLAVIX 75 MG Tablet PO SCH (09:43)
[2017-07-28] MEDS: Klor Con 10 MEQ PO SCH (09:43)
[2017-07-28] MEDS: Lasix 40 MG/4 ML IV SCH ×2 (09:44→17:57)
[2017-07-28] MEDS: xanAX 0.5 MG PO SCH ×3 (09:48→21:51)
[2017-07-28] MEDS ORDERED: CELECOXIB 200 MG PO SCH (10:00)
[2017-07-28 12:03] LABS: ANION GAP 11.6 MEQ/L (5-15); Calcium 9.3 mg/dL (8.4-10.2); Creatinine 1 1.52 mg/dL (0.52-1.04); Potassium 4.6 mmol/L (3.5-5.1)
[2017-07-28] MEDS ORDERED: SUBLIMAZE 100 MCG/2 ML IV PRN (13:46)
[2017-07-28] MEDS ORDERED: Zofran 4 MG/2 ML VIAL IV PRN (13:47)
[2017-07-28] MEDS: NovoLOG Insulin SQ PRN ×2 (14:23→18:05)
[2017-07-28] MEDS: Lidoderm Patch 5% TOP SCH (17:57)
[2017-07-28] MEDS: ROCEPHIN 1 Gm-D5w 50 ml Bag** 1 G/50 ML IVPB IV SCH (21:51)
[2017-07-28] MEDS: Sodium Chloride 0.9% 10 ML FLUSH Syringe IV SCH (22:00)
[2017-07-29] MEDS: OXYCODONE-ACETAMINOPHEN 10-325 PO SCH ×2 (01:24→06:03)
[2017-07-29] MEDS: xanAX 0.5 MG PO SCH ×2 (01:25→10:36)
[2017-07-29] MEDS: NovoLOG Insulin SQ PRN (07:50)
--- NOTE | 2017-07-29 08:27 | PCM.DS ---
Discharge Summary Date of Admission: 07/27/17 16:25 Admitting Physician: ADALGISA DIAZ Primary Care Provider: ADALGISA DIAZ Allergies Allergies Penicillins Allergy (Verified 07/26/17 15:21) heparin Adverse Reaction (Verified 07/26/17 15:21) Hospital Summary - Hospital Course Hospital Course: patient was admitted with chf exacerbation, stopped taking her diuretics 2-3 weeks ago because she didn't want to urinate so much. breathing is normal and she euvolemic now after diuresis. mostly complains of upper back pain, chronic and unchanged. - Vitals & Intake/Output Vital Signs: Vital Signs Temperature 98 F 07/29/17 07:31 Pulse Rate 67 07/29/17 07:31 Respiratory Rate 16 07/29/17 07:31 Blood Pressure 125/52 07/29/17 07:31 O2 Sat by Pulse Oximetry 98 07/29/17 07:31 Oxygen-Last Documented O2 Percentage 2 Liters = 28% Intake & Output: Intake & Output 07/26/17 07/27/17 07/28/17 07/29/17 11:59 11:59 11:59 11:59 Intake Total 710 590 Output Total 725 975 Balance -15 -385 Weight 83 kg 83.2 kg - Lab Result Diagrams: 07/28/17 05:22 07/28/17 05:22 Lab Results-Last 24 Hrs: Accuchecks Date 07/28/17 Date 07/28/17 Date 07/28/17 Time 21:20 Time 17:00 Time 11:30 Accucheck Value: 242 Accucheck Value: 197 Accucheck Value: 213 Accucheck Value: 288 Lab Results-Last 24 Hours 07/28/17 Range/Units 05:22 Sodium 139 (137-145) mmol/L Potassium 4.6 (3.5-5.1) mmol/L Chloride 97 L (98-107) mmol/L Carbon Dioxide 34 H (22-30) mmol/L Anion Gap 11.6 (5-15) MEQ/L BUN 35 H (7-17) mg/dL Creatinine 1.52 H (0.52-1.04) mg/dL Estimated GFR 34.3 ML/MIN Glucose 152 H (74-106) mg/dL Calcium 9.3 (8.4-10.2) mg/dL NT-Pro-B Natriuret Pep 2670 H (0-1800) pg/mL Micro Results-Entire Visit: Accuchecks Date 07/28/17 Date 07/28/17 Date 07/28/17 Time 21:20 Time 17:00 Time 11:30 Accucheck Value: 242 Accucheck Value: 197 Accucheck Value: 213 Accucheck Value: 288 - Radiology Exams Ordered Rad Exams-Entire Visit: Radiology Procedures Category Date Time Status THORACIC SPINE (AP,LAT,SWIMM) Routine Exams 07/27/17 18:19 Completed - Procedures and Test Procedures and Tests throughout Hospitalization: Therapy Orders & Screens 07/28/17 20:13 Speech Therapy Nursing Screen [ST Screen per Nursing Assess] once Comment: Protocol Order Physician Instructions: Greater than [address] Admission Screening Reason For Exam: Triggered on Admission Diagnosis: CHF, DYSPNEA, SOB CVA/Dyshpagia/Aphasia: No Cognitive Deficits: No Dehydration/Nutrition Deficit: No Reflux: No Oral-Motor Difficulties: No Pneumonia: No Longterm Resident: No Total Points: 0 Discharge Exam General Appearance: no apparent distress, alert Respiratory Exam: normal breath sounds, lungs clear, No respiratory distress Cardiovascular Exam: regular rate/rhythm, normal heart sounds Gastrointestinal/Abdomen Exam: soft, No tenderness, No mass Extremity Exam: normal inspection, normal range of motion Final Diagnosis/Problem List - Final Discharge Diagnosis/Problem (1) CHF (congestive heart failure) Current Visit: Yes Status: Acute Assessment & Plan: stable at this time, stressed importance of diuretic compliance (2) Thoracic back pain Current Visit: Yes Status: Acute Assessment & Plan: nothing acute on xray, pain is chronic. seems improved on lidoderm patch in addition to narcotics which she is on chronically (3) Thoracic aortic aneurysm Current Visit: No Status: Chronic - Discharge Disposition: Home, Self-Care Condition: Stable Prescriptions: New Lidocaine HCl 5% Patch [Lidoderm Patch 5%] 1 patch TOP Q24H #30 patch Continue Clopidogrel Bisulfate 75 mg [PLAVIX 75 MG Tablet] 75 mg PO DAILY Olmesartan Medoxomil 20 mg [Benicar 20 MG] 20 mg PO DAILY Hydrocodone/APAP 10/325 mg [[place] 10/325 MG Tablet] 1 tab PO Q6H PRN PRN PRN Reason: Pain Celecoxib 200 mg PO DAILY Potassium Chloride 10 Meq Tab* [Klor Con 10 MEQ] 10 meq PO DAILY Alprazolam 0.25 mg [xanAX 0.25 MG] 0.5 mg PO TID Insulin Regular, Human [Humulin R] 0 unit IJ DAILY Carvedilol 3.125 mg [Coreg 3.125 MG] 3.125 mg PO BID Follow up with: ADALGISA DIAZ MD [Primary Care Provider] - 1 Week
[2017-07-29] MEDS: celeBREX 100 MG PO SCH (10:36)
[2017-07-29] MEDS: Coreg 3.125 MG PO SCH (10:36)
[2017-07-29] MEDS: PLAVIX 75 MG Tablet PO SCH (10:36)
[2017-07-29] MEDS: Benicar 20 MG PO SCH (10:36)
[2017-07-29] MEDS: Klor Con 10 MEQ PO SCH (10:36)
[2017-07-29] MEDS: Lasix 40 MG/4 ML IV SCH (10:36)
[2017-07-29 12:09] VITALS: BP 119/62; PULSE 74; O2SAT 97
== END 2017-07-29 11:40 | disposition home or self-care (01) | DRG 292 ==
LOC: ED 15:10 → MED SURG 20:15 → OBSVTOIN 07-27 16:25
PROVIDERS: ADMIT Family Medicine; ATTEND Family Medicine
DX: I50.9 Heart failure, unspecified (principal); Z79.01 Long term (current) use of anticoagulants; M54.6 Pain in thoracic spine; I71.2 Thoracic aortic aneurysm, without rupture; Z79.899 Other long term (current) drug therapy; I25.810 Atherosclerosis of coronary artery bypass graft(s) without angina pectoris; I10 Essential (primary) hypertension; M19.90 Unspecified osteoarthritis, unspecified site; E11.9 Type 2 diabetes mellitus without complications; Z79.4 Long term (current) use of insulin; I25.2 Old myocardial infarction
CPT/HCPCS: 36000; 36415; 51702; 71045; 71260; 72072; 80048; 80053; 82962; 83735; 83880; 84484; 85025; 85027; 85379; 87040; 87631; 93005; 93041; 93268; 94760; 94762; 96365; 96374; 96375; 99284; 99285; J0696; J1940; J2405; J3010; A9270-GY; G0378

== ENCOUNTER 2017-08-15 17:19 | Emergency (ER) | payer MEDICARE ==
[2017-08-15] MEDS ORDERED: Ativan 1 MG PO ONE (17:29)
[2017-08-15] MEDS ORDERED: MORPHINE SULFATE 2 MG INJ IV ONE (17:30)
[2017-08-15] MEDS ORDERED: Ativan 1 MG ONE (17:33)
[2017-08-15] MEDS ORDERED: MORPHINE SULFATE 2 MG INJ ONE (17:33)
--- NOTE | 2017-08-15 17:36 | ERPHSYRPT ---
- History of Present Illness Source: patient, EMS Patient Subjective Stated Complaint: Pt states "My back is killing me and has been hurting for awhill and no one will do anything about it.". 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 PT moaning, tachypnic, anxious. Pt able to speak in clear full sentences. Hx Tetanus, Diphtheria Vaccination/Date Given: Yes Hx Influenza Vaccination/Date Given: Yes Hx Pneumococcal Vaccination/Date Given: Yes Immunizations Up to Date: Yes <JEREMY LIMA - Last Filed: 08/15/17 19:01> <ANDREA MATT - Last Filed: 08/15/17 20:32> - History of Present Illness Time Seen by Provider: 08/15/17 17:33 Physician History: mild to mod familiar ache pain of the lower back today, hx chronic pain, no injury, no fever, no NV, ems suspects the pt daughter is withholding pain meds ( JEREMY LIMA) Allergies/Adverse Reactions: Penicillins Allergy (Verified 07/26/17 15:21) heparin Adverse Reaction (Verified 07/26/17 15:21) Home Medications: Alprazolam 0.25 mg [xanAX 0.25 MG] 0.5 mg PO TID 01/30/17 [History] Celecoxib 200 mg PO DAILY 01/30/17 [History] Clopidogrel Bisulfate 75 mg [PLAVIX 75 MG Tablet] 75 mg PO DAILY 01/30/17 [History] Hydrocodone/APAP 10/325 mg [[place] 10/325 MG Tablet] 1 tab PO Q6H PRN PRN 01/30/17 [History] Insulin Regular, Human [Humulin R] 0 unit IJ DAILY 01/30/17 [History] Olmesartan Medoxomil 20 mg [Benicar 20 MG] 20 mg PO DAILY 01/30/17 [ History] Potassium Chloride 10 Meq Tab* [Klor Con 10 MEQ] 10 meq PO DAILY 01/30/17 [ History] Carvedilol 3.125 mg [Coreg 3.125 MG] 3.125 mg PO BID 07/26/17 [History] - Review of Systems Constitutional: No Fever Eyes: No Vision Changes Ears, Nose, & Throat: No Symptoms Respiratory: No Symptoms Cardiac: No Symptoms Abdominal/Gastrointestinal: No Abdominal Pain, No Vomiting Genitourinary Symptoms: No Dysuria Musculoskeletal: Back Pain, No Neck Pain, No Fall Skin: No Rash Neurological: No Dizziness <JEREMY LIMA - Last Filed: 08/15/17 19:01> - Past Medical History Pertinent Past Medical History: Yes Neurological History: No Pertinent History ENT History: No Pertinent History Cardiac History: Coronary Artery Disease, Hypertension Respiratory History: CHF Endocrine Medical History: Diabetes Type II Musculoskeletal History: Arthritis GI Medical History: No Pertinent History History: No Pertinent History Psycho-Social History: No Pertinent History Female Reproductive Disorders: No Pertinent History - Past Surgical History Past Surgical History: Yes Neuro Surgical History: No Pertinent History Cardiac: CABG Respiratory: No Pertinent History Gastrointestinal: No Pertinent History Genitourinary: No Pertinent History Musculoskeletal: Joint Replacement Female Surgical History: Hysterectomy Other Surgical History: L knee replacement - Social History Smoking Status: Former smoker Exposure to second hand smoke: No Drug Use: none Patient Lives Alone: No <JEREMY LIMA - Last Filed: 08/15/17 19:01> - Physical Exam General Appearance: no apparent distress Eye Exam: eyes nml inspection Ears, Nose, Throat Exam: moist mucous membranes Neck Exam: No meningismus Respiratory Exam: normal breath sounds Cardiovascular Exam: regular rate/rhythm, normal heart sounds Gastrointestinal Exam: soft, No tenderness, No distention, No pulsatile mass Back Exam: other (tender paralumbar back), No vertebral tenderness Extremity Exam: normal range of motion, pelvis stable, other (sen and pulses intact), No swelling Neurologic Exam: alert, oriented x 3, cooperative Skin Exam: warm, dry SpO2 Interpretation: normal SpO2: 95 Oxygen Delivery: Room Air <JEREMY LIMA - Last Filed: 08/15/17 19:01> - Nursing Vital Signs Nursing Vital Signs: Initial Vital Signs Temperature 98.2 F 08/15/17 17:26 Pulse Rate 82 08/15/17 17:26 Respiratory Rate 24 08/15/17 17:26 Blood Pressure 198/92 08/15/17 17:26 O2 Sat by Pulse Oximetry 95 08/15/17 17:26 Pain Scale Pain Intensity [] 8 Pain Intensity 8 - CT Exams Lumbar Spine CT Interpretation: Negative (no new or acute findings per Dr Mendoza.), Tele- radiologist Report Abdomen/Pelvis CT Interpretation: Tele-radiologist Report, Other (no cardiomeg and small bilateral pleural effusions per Dr Hunt) <ANDREA MATT - Last Filed: 08/15/17 20:32> Ordered Tests: Active Orders 24 hr Category Date Time Status IV Insertion STAT Care 08/15/17 17:30 Active Nursing [Miscellaneous Nursing Order] ROUTINE Care 08/15/17 18:17 Active ABDOMEN AND PELVIS W/0 CONTRAS [CT] Stat Exams 08/15/17 17:30 Taken RECONSTRUCTION [CT] Stat Exams 08/15/17 17:31 Taken UA W/ MICROSCOPIC Stat Lab 08/15/17 18:07 Completed Medication Summary Discontinued Medications Generic Name Dose Route Start Last Admin Trade Name Freq PRN Reason Stop Dose Admin Lorazepam 1 mg 08/15/17 17:29 08/15/17 17:41 Ativan 1 Mg PO 08/15/17 17:30 1 mg STAT ONE Administration Lorazepam Confirm 08/15/17 17:33 Ativan 1 Mg Administered 08/15/17 17:34 Dose 1 mg .ROUTE .STK-MED ONE Morphine Sulfate 1 mg 08/15/17 17:30 08/15/17 17:41 Morphine Sulfate 2 Mg Inj IV 08/15/17 17:31 1 mg STAT ONE Administration Morphine Sulfate Confirm 08/15/17 17:33 Morphine Sulfate 2 Mg Inj Administered 08/15/17 17:34 Dose 2 mg .ROUTE .STK-MED ONE Lab/Rad Data: Laboratory Results 08/15/17 Range/Units 18:07 Ur Collection Type CCMS Urine Color YELLOW (YELLOW) Urine Appearance CLEAR (CLEAR) Urine pH 7.0 (5-6) Ur Specific [place] 1.010 (1.005-1.025) Urine Protein TRACE (Negative) Urine Ketones NEGATIVE (NEGATIVE) Urine Blood NEGATIVE (0-5) Shaheen/ul Urine Nitrite NEGATIVE (NEGATIVE) Urine Bilirubin NEGATIVE (NEGATIVE) Urine Urobilinogen NORMAL (0-1) mg/dL Ur Leukocyte Esterase NEGATIVE (NEGATIVE) Urine Microscopic WBC 0-2 (0-5) /HPF Ur Epithelial Cells RARE (FEW) /HPF Urine Culture Reflexed NO (NO) Urine Glucose NEGATIVE (NEGATIVE) mg/dL Specimen Received [id number] <JEREMY LIMA - Last Filed: 08/15/17 19:01> - Progress Progress: improved Counseled pt/family regarding: lab results, diagnosis, need for follow-up, rad results <ANDREA MATT - Last Filed: 08/15/17 20:32> - Progress Progress Note: 08/15/17 19:[address] Matt at 19:00 (JEREMY LIMA) 08/15/17 19:43 Pt care discussed and care accepted from Dr Lima at 19:00, (ANDREA MATT) <JEREMY LIMA - Last Filed: 08/15/17 19:01> - Departure Time of Disposition: 20:31 Departure Disposition: Home Critical Care Time: No <ANDREA MATT - Last Filed: 08/15/17 20:32> - Departure Clinical Impression: Back spasm Condition: Stable Referrals: ADALGISA HUFFMAN MD [Primary Care Provider] - Additional Instructions: You have a spasm of the muscle of the lower right back. You were given 1 mg morphine and 1 mg of Ativan by IV. You were also given 1 mg Ativan orally in the ER. When you get home, you can take ties tizanidine 4 mg if needed. Call Dr. Huffman tomorrow for an appointment.
[2017-08-15 19:12] LABS: Appearance CLEAR (CLEAR); Bilirubin NEGATIVE (NEGATIVE); Blood NEGATIVE Ery/ul (0-5); Epithelial Cells RARE /HPF (FEW); Glucose NEGATIVE (NEGATIVE); Ketones NEGATIVE (NEGATIVE); Leukocyte Esterase NEGATIVE (NEGATIVE); Nitrite NEGATIVE (NEGATIVE); Protein,Urine Dip TRACE (Negative); Urobilinogen NORMAL mg/dL (0-1); WBC 0-2 /HPF (0-5)
[2017-08-15 19:56] VITALS: O2SAT 93
[2017-08-15] MEDS ORDERED: Zanaflex 4 MG PO PRN (20:29)
[2017-08-15] MEDS ORDERED: Ativan 2 MG/1 ML VIAL IV ONE (20:29)
[2017-08-15] MEDS ORDERED: Ativan 2 MG/1 ML VIAL ONE (20:34)
[2017-08-15] MEDS ORDERED: Zanaflex 4 MG ONE (20:41)
[2017-08-15 20:52] VITALS: BP 172/98; PULSE 97
--- NOTE | 2017-08-16 08:39 | XRAY ---
Indication: Right abdominal and low back pain. AAA. Multiple contiguous axial images obtained through the abdomen and pelvis without contrast as ordered. Comparison: March 29, 2016. Study is slightly degraded by respiration artifact. Lung bases demonstrates new incompletely visualized small bibasilar effusions with cardiomegaly concerning for cardiac decompensation. Noncontrasted stomach and bowel loops appear nonobstructed. Mild sigmoid diverticulosis. No free fluid/air. Stable bilateral renal punctate cortical calcifications,, bilateral adrenal hypertrophy, cirrhotic liver, and cholecystectomy. Remaining liver, pancreas, spleen, adrenal glands, kidneys, ureters, bladder, and uterus appear unremarkable for noncontrast exam. There remains extensive scattered arteriosclerotic calcifications including ectatic abdominal aorta and bilateral common iliac stent grafts. Lack of IV contrast precludes further characterization of these vessels. Osseous structures again demonstrates osteopenia, moderate multilevel degenerative spondylosis, and L3/L4 kyphoplasty. Stable small fatty umbilical hernia. Impression: 1. Respiration artifact. 2. New cardiomegaly and bibasilar effusions. Rule out cardiac decompensation. 3. Stable cirrhotic liver, bilateral renal cortical microcalcifications, bilateral adrenal hypertrophy, sigmoid diverticulosis, and small fatty umbilical hernia. 4. No new or acute intra-abdominal/pelvic abnormalities on this noncontrast exam. CT DI 23.68
--- NOTE | 2017-08-16 08:40 | XRAY ---
Indication: Low back pain. Axial, coronal, and sagittal reformatted images of the lumbar spine obtained using the raw data from the CT abdomen/pelvis study of the same day. Comparison: CT abdomen/pelvis March 29, 2016. Osseous structures again demonstrates osteopenia and L3/L4 kyphoplasty. Also stable moderate multilevel degenerative spondylosis again greatest at the L3-L5 levels where there is broad-based disc osteophyte complex and bilateral degenerative facet hypertrophy producing spinal canal and foraminal stenosis. Stable L2-L5 degenerative vacuum disc phenomena. No acute fracture, subluxation, or suspicious bony lesions. CT abdomen/pelvis reported separately. Impression: 1. Negative acute fracture/subluxation. 2. Multilevel degenerative spondylosis greatest at the L3-L5 levels. 3. Stable osteopenia and L3/L4 kyphoplasty.
== END 2017-08-15 20:51 | disposition home or self-care (01) ==
LOC: ED 17:19
DX: M62.830 Muscle spasm of back (principal); M54.5 Low back pain; Z79.01 Long term (current) use of anticoagulants; Z79.899 Other long term (current) drug therapy
CPT/HCPCS: 36000; 74176; 76376; 81000; 96374; 96375; 99284; J2060; J2270; A9270-GY

== ENCOUNTER 2017-08-16 13:15 | Emergency (ER) | payer MEDICARE ==
[2017-08-16] MEDS ORDERED: Sodium Chloride 0.9% 1000 ML 1,000 ML IV STA (13:35)
[2017-08-16] MEDS ORDERED: DUONEB 0.5-3 MG/3 ml Neb IH ONE ×3 (13:43→14:23)
--- NOTE | 2017-08-16 13:43 | ERPHSYRPT ---
- History of Present Illness Time Seen by Provider: 08/16/17 13:38 Source: patient, EMS Patient Subjective Stated Complaint: Pain to left upper back Triage Nursing Assessment: to er c/o pain to right upper back pt states seen in er last pm given shot for pain and unkown "white pill" pt daugter was concerned that pt had decreased loc since being released form ed. pt arrives pale w/d resp shallow and gaurded audible wheezing present Physician History: mild to mod upper right back pain today, and increasingly confused, no injury, from home, seen yesterday and released, no fever Allergies/Adverse Reactions: Penicillins Allergy (Verified 08/16/17 14:18) heparin Adverse Reaction (Verified 08/16/17 14:18) Home Medications: Alprazolam 0.25 mg [xanAX 0.25 MG] 0.5 mg PO TID 01/30/17 [History] Celecoxib 200 mg PO DAILY 01/30/17 [History] Clopidogrel Bisulfate 75 mg [PLAVIX 75 MG Tablet] 75 mg PO DAILY 01/30/17 [History] Hydrocodone/APAP 10/325 mg [Howard 10/325 MG Tablet] 1 tab PO Q6H PRN PRN 01/30/17 [History] Insulin Regular, Human [Humulin R] 0 unit IJ DAILY 01/30/17 [History] Olmesartan Medoxomil 20 mg [Benicar 20 MG] 20 mg PO DAILY 01/30/17 [ History] Potassium Chloride 10 Meq Tab* [Klor Con 10 MEQ] 10 meq PO DAILY 01/30/17 [ History] Carvedilol 3.125 mg [Coreg 3.125 MG] 3.125 mg PO BID 07/26/17 [History] Hx Tetanus, Diphtheria Vaccination/Date Given: Yes Hx Influenza Vaccination/Date Given: Yes Hx Pneumococcal Vaccination/Date Given: Yes - Review of Systems Constitutional: No Fever Eyes: No Discharge Ears, Nose, & Throat: No Mouth Pain Respiratory: No Cyanosis Cardiac: No Chest Pain Abdominal/Gastrointestinal: No Abdominal Pain Musculoskeletal: Back Pain, No Neck Pain, No Fall Skin: No Rash Neurological: No Dizziness, No Focal Weakness, No Headache, No Seizure - Past Medical History Pertinent Past Medical History: Yes Neurological History: No Pertinent History ENT History: No Pertinent History Cardiac History: Coronary Artery Disease, Hypertension Respiratory History: CHF Endocrine Medical History: Diabetes Type II Musculoskeletal History: Arthritis GI Medical History: No Pertinent History History: No Pertinent History Psycho-Social History: No Pertinent History Female Reproductive Disorders: No Pertinent History - Past Surgical History Past Surgical History: Yes Neuro Surgical History: No Pertinent History Cardiac: CABG Respiratory: No Pertinent History Gastrointestinal: No Pertinent History Genitourinary: No Pertinent History Musculoskeletal: Joint Replacement Female Surgical History: Hysterectomy Other Surgical History: L knee replacement - Social History Smoking Status: Former smoker Exposure to second hand smoke: No Drug Use: none Patient Lives Alone: No - Nursing Vital Signs Nursing Vital Signs: Initial Vital Signs Pulse Rate 82 08/16/17 13:16 Respiratory Rate 16 08/16/17 13:16 Blood Pressure 196/91 08/16/17 13:16 O2 Sat by Pulse Oximetry 88 L 08/16/17 13:16 Pain Scale Pain Intensity 7 - Physical Exam General Appearance: no apparent distress Eye Exam: PERRL/EOMI Ears, Nose, Throat Exam: moist mucous membranes Neck Exam: No meningismus Respiratory Exam: wheezing Cardiovascular Exam: regular rate/rhythm Gastrointestinal Exam: soft, No tenderness Back Exam: muscle spasm, other (tender right paraspinal thoracic back), No vertebral tenderness Extremity Exam: pelvis stable Neurologic Exam: alert, cooperative, other (poor historian, poorly follows commands) SpO2 Interpretation: hypoxic SpO2: 88 Oxygen Delivery: Room Air - Course Nursing assessment & vital signs reviewed: Yes EKG Interpreted by Me: Other (nsr 76 no stemi) - Radiology Exams Chest X-ray Interpretation: Discussed w/ radiologist, Other (mild pul vas congestion) - CT Exams Head CT Interpretation: Negative, Discussed w/radiologist Ordered Tests: Active Orders 24 hr Category Date Time Status Accucheck STAT Care 08/16/17 13:35 Active Audit Senior Associate STAT Care 08/16/17 13:36 Active EKG-ER Only STAT Care 08/16/17 13:35 Active IV Insertion STAT Care 08/16/17 13:35 Active Oxygen-ED Only NASAL CANNULA 2 lpm Care 08/16/17 13:43 Active Pulse Oximetry (ED) STAT Care 08/16/17 13:35 Active CHEST 1 VIEW (PORTABLE) Stat Exams 08/16/17 13:36 Completed HEAD WITHOUT CONTRAST [CT] Stat Exams 08/16/17 13:36 Completed ACETAMINOPHEN Stat Lab 08/16/17 13:59 Completed CBC W DIFF Stat Lab 08/16/17 13:59 Completed CMP Stat Lab 08/16/17 13:59 Completed CULTURE,URINE Routine Lab 08/16/17 14:30 Received D-DIMER QUANTITATION Stat Lab 08/16/17 14:51 Completed ETHYL ALCOHOL Stat Lab 08/16/17 13:59 Completed Lactic Acid Stat Lab 08/16/17 13:35 Completed PROTIME WITH INR Stat Lab 08/16/17 14:51 Completed SALICYLATE Stat Lab 08/16/17 13:59 Completed UA W/RFX UR CULTURE Routine Lab 08/16/17 14:30 Completed Urine Triage Profile Stat Lab 08/16/17 13:59 Completed Respiratory Nebulizer STAT RT 08/16/17 13:43 Active Respiratory Nebulizer STAT RT 08/16/17 14:23 Active Medication Summary Discontinued Medications Generic Name Dose Route Start Last Admin Trade Name Freq PRN Reason Stop Dose Admin Albuterol Sulfate Confirm 08/16/17 15:00 Proventil 2.5 Mg/3 Ml Neb Administered 08/16/17 15:01 Dose 2.5 mg IH .STK-MED ONE Albuterol/Ipratropium 3 ml 08/16/17 13:43 08/16/17 14:18 Duoneb 0.5-3 Mg/3 Ml Neb IH 08/16/17 13:44 3 ml STAT ONE Administration Albuterol/Ipratropium Confirm 08/16/17 14:07 Duoneb 0.5-3 Mg/3 Ml Neb Administered 08/16/17 14:08 Dose 3 ml IH .STK-MED ONE Albuterol/Ipratropium 3 ml 08/16/17 14:23 Duoneb 0.5-3 Mg/3 Ml Neb IH 08/16/17 14:24 STAT ONE Sodium Chloride 1,000 mls @ 999 mls/hr 08/16/17 13:35 08/16/17 14:02 Sodium Chloride 0.9% 1000 Ml IV 08/16/17 14:35 999 mls/hr .Q1H1M STA Administration Sodium Chloride Confirm 08/16/17 14:00 Sodium Chloride 0.9% 1000 Ml Administered 08/16/17 14:01 Dose 1,000 mls @ ud .ROUTE .STK-MED ONE Morphine Sulfate 2 mg 08/16/17 14:24 Morphine Sulfate 2 Mg Inj IV 08/16/17 14:25 STAT ONE Lab/Rad Data: Laboratory Result Diagrams 08/16/17 13:59 08/16/17 13:59 Laboratory Results 08/16/17 08/16/17 08/16/17 Range/Units 14:51 14:30 13:59 WBC (4.0-10.5) K/mm3 RBC (4.1-5.4) M/mm3 Hgb (12.0-16.0) gm/dl Hct (35-47) % MCV (78-100) fl MCH (26-32) pg MCHC (32-36) g/dl RDW (11.5-14.0) % Plt Count (150-450) K/mm3 MPV (6-9.5) fl Gran % (36.0-66.0) % Eos # (Auto) (0-0.5) Absolute Lymphs (auto) (1.0-4.6) Absolute Monos (auto) (0.0-1.3) Lymphocytes % (24.0-44.0) % Monocytes % (0.0-12.0) % Eosinophils % (0.00-5.0) % Basophils % (0.0-0.4) % Absolute Granulocytes (1.4-6.9) Basophils # (0-0.4) PT 12.8 H (9.95-12.35) SECONDS INR 1.10 (0.8-3.0) D-Dimer 1492.71 H* (215-500) ng/mL Sodium (137-145) mmol/L Potassium (3.5-5.1) mmol/L Chloride (98-107) mmol/L Carbon Dioxide (22-30) mmol/L Anion Gap (5-15) MEQ/L BUN (7-17) mg/dL Creatinine (0.52-1.04) mg/dL Estimated GFR ML/MIN Glucose (74-106) mg/dL Lactic Acid (0.4-2.0) Calcium (8.4-10.2) mg/dL Total Bilirubin (0.2-1.3) mg/dL AST (14-36) U/L ALT (0-35) U/L Alkaline Phosphatase (38-126) U/L Serum Total Protein (6.3-8.2) g/dL Albumin (3.5-5.0) g/dL Ur Collection Type CLEAN CATCH Urine Color YELLOW Urine Appearance CLEAR Urine pH 5.[address] 1.015 Urine Protein 100 Urine Ketones NEGATIVE Urine Blood 5-10 Urine Nitrite NEGATIVE Urine Bilirubin NEGATIVE Urine Urobilinogen NORMAL Ur Leukocyte Esterase TRACE Urine Culture Reflexed NO Urine Glucose 250 Salicylates (2-20) mg/dL Urine Opiates Level POSITIVE (NEGATIVE) Ur Methadone NEGATIVE (NEGATIVE) Acetaminophen (10-30) ug/ml Urine Barbiturates NEGATIVE (NEGATIVE) Ur Phencyclidine (PCP) NEGATIVE (NEGATIVE) Urine Amphetamine NEGATIVE (NEGATIVE) U Benzodiazepine Level NEGATIVE (NEGATIVE) Urine Cocaine NEGATIVE (NEGATIVE) Urine Marijuana (THC) NEGATIVE (NEGATIVE) Ethyl Alcohol (0-10) mg/dL Specimen Received 08/16/17 1400 08/16/17 08/16/17 08/16/17 Range/Units 13:59 13:59 13:59 WBC 5.7 (4.0-10.5) K/mm3 RBC 3.70 L (4.1-5.4) M/mm3 Hgb 8.4 L (12.0-16.0) gm/dl Hct 29.5 L (35-47) % MCV 79.7 (78-100) fl MCH 22.7 L (26-32) pg MCHC 28.5 L (32-36) g/dl RDW 15.2 H (11.5-14.0) % Plt Count 151 (150-450) K/mm3 MPV 10.0 H (6-9.5) fl Gran % 81.2 H (36.0-66.0) % Eos # (Auto) 0.06 (0-0.5) Absolute Lymphs (auto) 0.57 L (1.0-4.6) Absolute Monos (auto) 0.42 (0.0-1.3) Lymphocytes % 10.1 L (24.0-44.0) % Monocytes % 7.4 (0.0-12.0) % Eosinophils % 1.1 (0.00-5.0) % Basophils % 0.2 (0.0-0.4) % Absolute Granulocytes 4.61 (1.4-6.9) Basophils # 0.01 (0-0.4) PT (9.95-12.35) SECONDS INR (0.8-3.0) D-Dimer (215-500) ng/mL Sodium 141 (137-145) mmol/L Potassium 4.2 (3.5-5.1) mmol/L Chloride 103 (98-107) mmol/L Carbon Dioxide 27 (22-30) mmol/L Anion Gap 15.0 (5-15) MEQ/L BUN 25 H (7-17) mg/dL Creatinine 1.08 H (0.52-1.04) mg/dL Estimated GFR 50.9 ML/MIN Glucose 257 H (74-106) mg/dL Lactic Acid (0.4-2.0) Calcium 9.5 (8.4-10.2) mg/dL Total Bilirubin 0.40 (0.2-1.3) mg/dL AST 24 (14-36) U/L ALT 14 (0-35) U/L Alkaline Phosphatase 105 (38-126) U/L Serum Total Protein 7.0 (6.3-8.2) g/dL Albumin 4.0 (3.5-5.0) g/dL Ur Collection Type Cancelled Urine Color Cancelled Urine Appearance Cancelled Urine pH Cancelled Ur Specific Circle Cancelled Urine Protein Cancelled Urine Ketones Cancelled Urine Blood Cancelled Urine Nitrite Cancelled Urine Bilirubin Cancelled Urine Urobilinogen Cancelled Ur Leukocyte Esterase Cancelled Urine Culture Reflexed Cancelled Urine Glucose Cancelled Salicylates < 1.0 L (2-20) mg/dL Urine Opiates Level (NEGATIVE) Ur Methadone (NEGATIVE) Acetaminophen < 10 L (10-30) ug/ml Urine Barbiturates (NEGATIVE) Ur Phencyclidine (PCP) (NEGATIVE) Urine Amphetamine (NEGATIVE) U Benzodiazepine Level (NEGATIVE) Urine Cocaine (NEGATIVE) Urine Marijuana (THC) (NEGATIVE) Ethyl Alcohol < 10 (0-10) mg/dL Specimen Received Cancelled 08/16/17 Range/Units 13:35 WBC (4.0-10.5) K/mm3 RBC (4.1-5.4) M/mm3 Hgb (12.0-16.0) gm/dl Hct (35-47) % MCV (78-100) fl MCH (26-32) pg MCHC (32-36) g/dl RDW (11.5-14.0) % Plt Count (150-450) K/mm3 MPV (6-9.5) fl Gran % (36.0-66.0) % Eos # (Auto) (0-0.5) Absolute Lymphs (auto) (1.0-4.6) Absolute Monos (auto) (0.0-1.3) Lymphocytes % (24.0-44.0) % Monocytes % (0.0-12.0) % Eosinophils % (0.00-5.0) % Basophils % (0.0-0.4) % Absolute Granulocytes (1.4-6.9) Basophils # (0-0.4) PT (9.95-12.35) SECONDS INR (0.8-3.0) D-Dimer (215-500) ng/mL Sodium (137-145) mmol/L Potassium (3.5-5.1) mmol/L Chloride (98-107) mmol/L Carbon Dioxide (22-30) mmol/L Anion Gap (5-15) MEQ/L BUN (7-17) mg/dL Creatinine (0.52-1.04) mg/dL Estimated GFR ML/MIN Glucose (74-106) mg/dL Lactic Acid 1.8 (0.4-2.0) Calcium (8.4-10.2) mg/dL Total Bilirubin (0.2-1.3) mg/dL AST (14-36) U/L ALT (0-35) U/L Alkaline Phosphatase (38-126) U/L Serum Total Protein (6.3-8.2) g/dL Albumin (3.5-5.0) g/dL Ur Collection Type Urine Color Urine Appearance Urine pH Ur Specific Circle Urine Protein Urine Ketones Urine Blood Urine Nitrite Urine Bilirubin Urine Urobilinogen Ur Leukocyte Esterase Urine Culture Reflexed Urine Glucose Salicylates (2-20) mg/dL Urine Opiates Level (NEGATIVE) Ur Methadone (NEGATIVE) Acetaminophen (10-30) ug/ml Urine Barbiturates (NEGATIVE) Ur Phencyclidine (PCP) (NEGATIVE) Urine Amphetamine (NEGATIVE) U Benzodiazepine Level (NEGATIVE) Urine Cocaine (NEGATIVE) Urine Marijuana (THC) (NEGATIVE) Ethyl Alcohol (0-10) mg/dL Specimen Received - Progress Progress: improved Counseled pt/family regarding: lab results, diagnosis, rad results - Departure Time of Disposition: 15:06 Departure Disposition: Transfer Clinical Impression: Elevated d-dimer, Renal insufficiency, Hypoxia Back pain Qualifiers: Back pain location: thoracic back pain Chronicity: acute Back pain laterality: right Qualified Code(s): M54.6 - Pain in thoracic spine Condition: Stable Critical Care Time: No Referrals: ADALGISA DIAZ MD [Primary Care Provider] -
[2017-08-16] MEDS ORDERED: Sodium Chloride 0.9% 1000 ML 1,000 ML ONE (14:00)
[2017-08-16 14:04] LABS: BASOPHIL % 0.2 % (0.0-0.4); Basophil (Absolute #) 0.01 (0-0.4); Eosinophil % 1.1 % (0.00-5.0); Eosinophil (Absolute #) 0.06 (0-0.5); Granulocyte Absolute (ANC) 4.61 (1.4-6.9); Granulocytes % 81.2 % (36.0-66.0); Hematocrit 29.5 % (35-47); Hemoglobin 8.4 gm/dl (12.0-16.0); Lymphocyte (Absolute #) 0.57 (1.0-4.6); Lymphocytes % 10.1 % (24.0-44.0); Mean Cell Volume 79.7 fl (78-100); Mean Corpuscular Hemoglobin 22.7 pg (26-32); Mean Corpuscular Hgb Concent. 28.5 g/dl (32-36); Monocyte (Absolute #) 0.42 (0.0-1.3); Monocytes % 7.4 % (0.0-12.0); Platelet Count 151 K/mm3 (150-450); Red Cell Distribution Width 15.2 % (11.5-14.0); White Blood Count 5.7 K/mm3 (4.0-10.5)
--- NOTE | 2017-08-16 14:07 | XRAY ---
Indication: Acute mental status change. Comparison: July 27, 2017. Portable chest unchanged again demonstrating CABG surgery, cardiomegaly, pulmonary edema, and small bibasilar effusions favoring cardiac decompensation. Known thoracic aneurysm. No new cardiopulmonary abnormalities.
[2017-08-16] MEDS ORDERED: MORPHINE SULFATE 2 MG INJ IV ONE (14:24)
[2017-08-16 14:28] VITALS: BP 196/109; PULSE 83
[2017-08-16 14:33] LABS: Amphetamine,Urine NEGATIVE (NEGATIVE); Barbiturate,Urine NEGATIVE (NEGATIVE); Benzodiazepine,Urine NEGATIVE (NEGATIVE); Cocaine,Urine NEGATIVE (NEGATIVE); Methadone,Urine NEGATIVE (NEGATIVE); Opiate,Urine POSITIVE (NEGATIVE); PCP,Urine NEGATIVE (NEGATIVE); THC,Urine NEGATIVE (NEGATIVE)
[2017-08-16 14:35] LABS: ACETAMINOPHEN < 10 ug/ml (10-30); ALKALINE PHOSPHATASE 105 U/L (38-126); BLOOD UREA NITROGEN 25 mg/dL (7-17); CHLORIDE 103 mmol/L (98-107); Calcium 9.5 mg/dL (8.4-10.2); Carbon Dioxide 27 mmol/L (22-30); Creatinine 1 1.08 mg/dL (0.52-1.04); ETHYL ALCOHOL < 10 mg/dL (0-10); Glucose 257 mg/dL (74-106); Potassium 4.2 mmol/L (3.5-5.1); SALICYLATE < 1.0 mg/dL (2-20); SGOT/AST 24 U/L (14-36); SGPT/ALT 14 U/L (0-35); SODIUM 141 mmol/L (137-145)
[2017-08-16 14:41] LABS: INR 1.1 (0.8-3.0)
[2017-08-16 14:54] LABS: Appearance CLEAR (CLEAR); Bilirubin NEGATIVE (NEGATIVE); Glucose 250 mg/dL (NEGATIVE); Ketones NEGATIVE (NEGATIVE); Leukocyte Esterase TRACE (NEGATIVE); Nitrite NEGATIVE (NEGATIVE); Protein,Urine Dip 100 (Negative); Specific Gravity 1.015 (1.005-1.025); Urobilinogen NORMAL mg/dL (0-1)
--- NOTE | 2017-08-16 14:55 | XRAY ---
Indication: Altered mental status. Multiple contiguous axial images obtained through the head without contrast. Comparison: March 27, 2009. Base of the brain demonstrates minimal motion artifact even with repeat CT. Again age-appropriate global atrophy and mild periventricular degenerative micro-ischemia bilaterally. Stable benign chunky calcification in the left anterior sylvian fissure. No acute intracranial hemorrhage, abnormal extra axial fluid collection, or mass effect. Fourth ventricle is midline without hydrocephalus. Bony calvarium intact again with hyperostosis frontalis interna. There remains moderate mucosal thickening involving the inferior left maxillary sinus with again antrectomy. Mastoid air cells clear. Impression: Minimal motion artifact. Stable nonacute senile brain with chronic features. Again incidental left maxillary sinus disease. CT DI 59.95
[2017-08-16 14:58] LABS: D-DIMER QUANTITATION 1492.71 ng/mL (215-500)
[2017-08-16] MEDS ORDERED: PROVENTIL 2.5 MG/3 ML NEB IH ONE ×2 (15:00)
[2017-08-16 15:08] VITALS: O2SAT 88
[2017-08-16 15:16] LABS: Slide Review 1 YES
[2017-08-16] MEDS ORDERED: MORPHINE SULFATE 2 MG INJ ONE (15:35)
== END 2017-08-16 15:52 | disposition short-term general hospital (02) ==
LOC: ED 13:15
DX: R79.1 Abnormal coagulation profile (principal); N28.9 Disorder of kidney and ureter, unspecified; R09.02 Hypoxemia; M54.6 Pain in thoracic spine; Z79.01 Long term (current) use of anticoagulants; Z79.899 Other long term (current) drug therapy; E11.9 Type 2 diabetes mellitus without complications; Z79.4 Long term (current) use of insulin
CPT/HCPCS: 36000; 36415; 70450; 71045; 80053; 80307; 81002; 82962; 83605; 85025; 85379; 85610; 87086; 93005; 93041; 94640; 96360; 96376; 99285; G0481; J7609; J2270; A9270-GY; G0480